=== PATIENT | female | born 1960 | race Two or more races ===

== ENCOUNTER 2018-11-25 15:27 | Inpatient (IN) | payer OTHER ==
[~2018-11-25] VITALS: Ht 149.9 cm; Wt 52.2 kg
[2018-11-25] MEDS ORDERED: Morphine Sulfate 2mg/ml Inj(IV/IM USE ONLY) IVP ONE (15:45)
--- NOTE | 2018-11-25 15:46 | Emergency Room Report ---
History of Present Illness General Chief Complaint: Abnormal Labs Source: Patient Present Illness HPI Patient presents being transferred out of hospice for blood transfusion. She has history of uterine cancer with ascites. She has been feeling weak and short of breath. There is also abdominal pain. Her doctor and family want to transfuse blood. Patient denies vomiting, hematemesis, coffee-ground emesis, melena, hematochezia , diarrhea or constipation. She also denies dysuria and hematuria. She does complain about abdominal pain as she is quite distended. She rates the pain 10/ 10 at this time constant pressure and aching. Patient complains about hoarseness. She denies any pain in her throat. She is not sure why she has hoarseness. Patient denies chest pain, cough. She does get easily out of breath with any exertion. Patient denies depression. Allergies: Coded Allergies: No Known Allergies (Unverified , 11/25/18) Patient History Past Medical History: see triage record Social History: Denies: smoking, alcohol use, drug use Social History Narrative Born in [facility] Reviewed Nursing Documentation: PMH: Agreed; PSxH: Agreed Nursing Documentation-PMH Past Medical History: No History, Except For Hx Cancer: Yes - stomach uterine Review of Systems All Other Systems: negative except mentioned in HPI Physical Exam Vital Signs Date Time Temp Pulse Resp B/P (MAP) Pulse Ox O2 Delivery O2 Flow Rate FiO2 11/25/18 15:37 97.9 88 18 90/55 (67) 92 Room Air Sp02 EP Interpretation: reviewed, normal General Appearance: GCS 15, thin, Chronically Ill Head: normocephalic Eyes: bilateral eye PERRL, bilateral eye conjunctivae pale ENT: dry mucus membranes Neck: supple, other - hoarse Respiratory: lungs clear, normal breath sounds Cardiovascular #1: regular rate, rhythm Cardiovascular #2: 2+ radial (R) Gastrointestinal: normal inspection, normal bowel sounds, no guarding, no rebound, distended, tenderness, mass - suprapubic and abdomen, other - fluid wave Genitourinary: no CVA tenderness Musculoskeletal: back normal, normal range of motion Neurologic: alert, oriented x3, DTRs symmetric, sensory intact, motor weakness - diffuse Psychiatric: mood/affect normal Skin: warm/dry, pallor Medical Decision Making Diagnostic Impression: Primary Impression: Profound anemia Qualified Codes: D64.89 - Other specified anemias Additional Impressions: Uterine cancer Qualified Codes: C55 - Malignant neoplasm of uterus, part unspecified Ascites Qualified Codes: R18.0 - Malignant ascites Abdominal pain Qualified Codes: R10.84 - Generalized abdominal pain ER Course Presents with alleged severe anemia and abdominal pain with history of uterine cancer. Differential includes profound anemia, spontaneous bacterial peritonitis, urinary tract infection, ascites, pancreatitis amongst others. The patient appears dehydrated at this time will receive IV hydration, analgesia. Blood will be sent for type and Rh. EKG no injury. CXR clear, ABD mass and possible ascites. H/H critically low. Blood ordered. C/O continued GERARD. Repeat analgesia. Receiving blood without reaction. Contacted Dr. Yin for admission Laboratory Tests Test 11/25/18 15:55 11/25/18 16:20 White Blood Count 6.0 K/UL (4.8-10.8) Red Blood Count 3.71 M/UL (4.20-5.40) L Hemoglobin 6.6 G/DL (12.0-16.0) *L Hematocrit 23.1 % (37.0-47.0) L Mean Corpuscular Volume 62 FL (80-99) L Mean Corpuscular Hemoglobin 17.9 PG (27.0-31.0) L Mean Corpuscular Hemoglobin Concent 28.8 G/DL (32.0-36.0) L Red Cell Distribution Width 15.9 % (11.6-14.8) H Platelet Count 451 K/UL (150-450) H Mean Platelet Volume 4.3 FL (6.5-10.1) L Neutrophils (%) (Auto) % (45.0-75.0) Lymphocytes (%) (Auto) % (20.0-45.0) Monocytes (%) (Auto) % (1.0-10.0) Eosinophils (%) (Auto) % (0.0-3.0) Basophils (%) (Auto) % (0.0-2.0) Neutrophils % (Manual) Pending Lymphocytes % (Manual) Pending Platelet Estimate Pending Platelet Morphology Pending Prothrombin Time 10.7 SEC (9.30-11.50) Prothrombin Time INR 1.0 (0.9-1.1) PTT 30 SEC (23-33) Sodium Level 141 MMOL/L (136-145) Potassium Level 3.9 MMOL/L (3.5-5.1) Chloride Level 104 MMOL/L (98-107) Carbon Dioxide Level 30 MMOL/L (21-32) Anion Gap 7 mmol/L (5-15) Blood Urea Nitrogen 17 mg/dL (7-18) Creatinine 0.8 MG/DL (0.55-1.30) Estimate Glomerular Filtration Rate > 60 mL/min (>60) Glucose Level 95 MG/DL (74-106) Lactic Acid Level Pending Calcium Level 8.7 MG/DL (8.5-10.1) Magnesium Level 2.6 MG/DL (1.8-2.4) H Total Bilirubin 0.2 MG/DL (0.2-1.0) Aspartate Amino Transferase (AST) 30 U/L (15-37) Alanine Aminotransferase (ALT) 12 U/L (12-78) Alkaline Phosphatase 105 U/L (46-116) Ammonia 26 umol/L (11-32) Troponin I 0.013 ng/mL (0.000-0.056) Total Protein 6.7 G/DL (6.4-8.2) Albumin 2.5 G/DL (3.4-5.0) L Globulin 4.2 g/dL Albumin/Globulin Ratio 0.6 (1.0-2.7) L Lipase 134 U/L (73-393) Urine Color Yellow Urine Appearance Slightly cloudy Urine pH 5 (4.5-8.0) Urine Specific [place] 1.015 (1.005-1.035) Urine Protein 2+ (NEGATIVE) H Urine Glucose (UA) Negative (NEGATIVE) Urine Ketones 1+ (NEGATIVE) H Urine Blood 4+ (NEGATIVE) H Urine Nitrite Negative (NEGATIVE) Urine Bilirubin 1+ (NEGATIVE) H Urine Ictotest Negative (NEGATIVE) Urine Urobilinogen 1 MG/DL (0.0-1.0) H Urine Leukocyte Esterase 1+ (NEGATIVE) H Urine RBC 5-10 /HPF (0 - 2) H Urine WBC 2-4 /HPF (0 - 2) Urine Squamous Epithelial Cells Many /LPF (NONE/OCC) H Urine Bacteria Few /HPF (NONE) Urine Mucus Many /LPF (NONE/OCC) H Urine Yeast Occasional /HPF (NONE) H EKG Diagnostic Results Rate: normal Rhythm: NSR ST Segments: no acute changes Rhythm Strip Diag. Results EP Interpretation: yes Rhythm: NSR, no PVC's, no ectopy Chest X-Ray Diagnostic Results Chest X-Ray Diagnostic Results : Chest X-Ray Ordered: Yes Indication: Other EP Interpretation: Yes Interpretation: no consolidation, no effusion, no pneumothorax Impression: No acute disease Electronically Signed by: Electronically signed by Waylon Chan MD Other X-Ray Diagnostic Results Other X-Ray Diagnostic Results : X-Ray ordered: Abdomen # of Views/Limited Vs Complete: 1 View Indication: Other EP Interpretation: Yes Interpretation: nonspecific bowel gas, no sbo, other - Mass and ascites Impression: Other Electronically Signed by: Electronically signed by Waylon Chan MD Last Vital Signs Date Time Temp Pulse Resp B/P (MAP) Pulse Ox O2 Delivery O2 Flow Rate FiO2 11/25/18 20:00 Room Air 11/25/18 18:24 97.7 83 16 85/56 (66) 98 Status: improved Disposition: PLACE IN OBSERVATION Condition: Serious Waylon Chan MD Nov 25, 2018 15:46
[2018-11-25] MEDS ORDERED: DULCOLAX10 MG RC (15:49)
[2018-11-25] MEDS ORDERED: MORPHINE S10 MG/5 ML ORAL (15:49)
[2018-11-25] MEDS ORDERED: LEVSIN0.125 MG ORAL (15:49)
[2018-11-25] MEDS ORDERED: SENNA-S TABLET1 EACH PO (15:49)
[2018-11-25] MEDS ORDERED: ACETAMINOPHEN325 M1 ORAL (15:49)
[2018-11-25] MEDS ORDERED: ZOFRAN4 M3 ORAL (15:49)
[2018-11-25] MEDS ORDERED: NORCO 5-325 TA1 EACH ORAL ×2 (15:49→19:59)
[2018-11-25 16:01] VITALS: BP 88/57
[2018-11-25 16:09] LABS: HEMATOCRIT 23.1 % (37.0-47.0); MEAN CORPUSCULAR VOLUME 62 FL (80-99); PLATELET COUNT 451 K/UL (150-450); RED BLOOD COUNT 3.71 M/UL (4.20-5.40); RED CELL DISTRIBUTION WIDTH 15.9 % (11.6-14.8)
[2018-11-25 16:11] LABS: HEMOGLOBIN 6.6 G/DL (12.0-16.0)
[2018-11-25 16:22] LABS: AMMONIA 26 umol/L (11-32)
[2018-11-25 16:24] LABS: ANION GAP 7 mmol/L (5-15); BLOOD UREA NITROGEN 17 mg/dL (7-18); CALCIUM 8.7 MG/DL (8.5-10.1); CARBON DIOXIDE 30 MMOL/L (21-32); CHLORIDE 104 MMOL/L (98-107); CREATININE 0.8 MG/DL (0.55-1.30); POTASSIUM 3.9 MMOL/L (3.5-5.1); SODIUM 141 MMOL/L (136-145)
[2018-11-25 16:27] LABS: APPEARANCE,URINE SLIGHTLY CLOUDY; BILIRUBIN, URINE 1+ (NEGATIVE); COLOR,URINE YELLOW; GLUCOSE, URINE (UA) NEGATIVE (NEGATIVE); KETONES,URINE 1+ (NEGATIVE); LEUKOCYTE ESTERASE ,URINE 1+ (NEGATIVE); NITRITE,URINE NEGATIVE (NEGATIVE); PH,URINE 5 (4.5-8.0); PROTEIN,URINE 2+ (NEGATIVE); UROBILINOGEN,URINE 1 MG/DL (0.0-1.0)
[2018-11-25 16:38] LABS: ALANINE AMINOTRANSFERASE 12 U/L (12-78); ALBUMIN 2.5 G/DL (3.4-5.0); ALBUMIN/GLOBULIN RATIO 0.6 (1.0-2.7); ALKALINE PHOSPHATASE 105 U/L (46-116); ASPARTATE AMINO TRANSFERASE 30 U/L (15-37); BILIRUBIN,TOTAL 0.2 MG/DL (0.2-1.0)
[2018-11-25 17:30] VITALS: BP 85/57
[2018-11-25] MEDS ORDERED: Morphine Sulfate 4mg/ml Inj (IV USE ONLY) IVP ONE (17:30)
[2018-11-25 17:45] VITALS: BP 83/50
[2018-11-25 18:24] VITALS: BP 85/56
[2018-11-25] MEDS ORDERED: ACETAMINOPHEN120 MG RECTAL (19:59)
[2018-11-25] MEDS ORDERED: GUAIFENESI100 MG/5 M ORAL (19:59)
[2018-11-25] MEDS ORDERED: guaiFENesin 100mg/5ml Liq ud ORAL PRN (21:30)
[2018-11-25] MEDS ORDERED: Morphine Sulfate 10mg/5ml Oral Soln ud ORAL PRN (21:30)
[2018-11-25] MEDS ORDERED: Hyoscyamine 0.125mg tab ORAL PRN (21:30)
[2018-11-25 21:45] VITALS: BP 86/53
[2018-11-25] MEDS ORDERED: TYLENOL650 MG RC (21:53)
[2018-11-25] MEDS ORDERED: Acetaminophen 650 MG SUPP RECTAL PRN (22:00)
[2018-11-25] MEDS: HYDROcodone/Acetamin 5/325 tab ORAL SCH (23:45)
[2018-11-26] VITALS: BP 83/49
--- NOTE | 2018-11-26 03:15 | History and Physical Report ---
DATE OF ADMISSION: 11/25/2018 NOTE: POOR AUDIO HISTORY OF PRESENT ILLNESS: The patient was admitted for severe anemia. The patient was . The patient was comfort care otherwise most of the history per chart review. PAST MEDICAL HISTORY: Significant for constipation, uterine cancer, history of anemia, history of liver failure, ascites. PAST SURGICAL HISTORY: Unable to obtain. MEDICATIONS: Bisacodyl and Senokot. ALLERGIES: No known allergies. FAMILY HISTORY: Unable to obtain. REVIEW OF SYSTEMS: Unable to obtain. Poor historian. PHYSICAL EXAMINATION: VITAL SIGNS: Temperature 97.9, pulse is 82, blood pressure 95/67. HEENT: PERRLA. NECK: Supple. No lymphadenopathy. CHEST: Clear to auscultation. CARDIOVASCULAR: Regular rate and rhythm. ABDOMEN: Soft. EXTREMITIES: No edema. Reflexes equal on both sides. NEUROLOGIC: Does not follow neurological exam. oriented. LABORATORY DATA: WBC of 6.6, platelets 451. Sodium 141, potassium 3.9, BUN of 17, creatinine 0.8. Troponin 0.013. ASSESSMENT: 1. Severe anemia. 2. Comfort care. 3. Ascites. 4. Abdominal pain. I have consulted Dr. Arsen Contreras, , Dr. Busch for the above-mentioned diagnoses and treatment and also Dr. Busch has been consulted for elevated magnesium of 2.6. Christy Yin M.D. DR: Bob JOB#: [id number] CC:
[2018-11-26 04:00] VITALS: BP 85/45
[2018-11-26] MEDS: HYDROcodone/Acetamin 5/325 tab ORAL SCH ×3 (05:35→17:48)
[2018-11-26 07:15] LABS: HEMATOCRIT 21.9 % (37.0-47.0); MEAN CORPUSCULAR VOLUME 66 FL (80-99); PLATELET COUNT 398 K/UL (150-450); RED BLOOD COUNT 3.29 M/UL (4.20-5.40)
[2018-11-26 07:29] LABS: HEMOGLOBIN 6.5 G/DL (12.0-16.0)
[2018-11-26 07:38] LABS: ALANINE AMINOTRANSFERASE 9 U/L (12-78); ALBUMIN 2.1 G/DL (3.4-5.0); ALBUMIN/GLOBULIN RATIO 0.7 (1.0-2.7); ALKALINE PHOSPHATASE 89 U/L (46-116); ANION GAP 8 mmol/L (5-15); ASPARTATE AMINO TRANSFERASE 23 U/L (15-37); BILIRUBIN,TOTAL 0.4 MG/DL (0.2-1.0); BLOOD UREA NITROGEN 11 mg/dL (7-18); CALCIUM 7.6 MG/DL (8.5-10.1); CARBON DIOXIDE 25 MMOL/L (21-32); CHLORIDE 107 MMOL/L (98-107); CREATININE 0.6 MG/DL (0.55-1.30); POTASSIUM 4.3 MMOL/L (3.5-5.1); SODIUM 140 MMOL/L (136-145)
[2018-11-26 08:00] VITALS: BP 72/48
[2018-11-26] MEDS: Heparin 5000 units/ml inj SUBQ SCH ×2 (08:13→20:24)
--- NOTE | 2018-11-26 10:13 | GI Initial Consult Note ---
History of Present Illness General Date patient seen: Nov 26, 2018 Time patient seen: 10:08 Reason for Hospitalization: Abnormal Labs Referring physician: KEHINDE MCKENZIE Reason for Consultation: ANEMIA Present Illness HPI Patient presents being transferred out of hospice for blood transfusion. She has history of uterine cancer with ascites. She has been feeling weak and short of breath. There is also abdominal pain. Her doctor and family want to transfuse blood. Patient denies vomiting, hematemesis, coffee-ground emesis, melena, hematochezia , diarrhea or constipation. She also denies dysuria and hematuria. She does complain about abdominal pain as she is quite distended. She rates the pain 10/ 10 at this time constant pressure and aching. Patient complains about hoarseness. She denies any pain in her throat. She is not sure why she has hoarseness. Patient denies chest pain, cough. She does get easily out of breath with any exertion. Patient denies depression. GI consulted for abdominal pain and anemia. Patient seen, awake alert and oriented with no apparent distress with no active signs symptoms of nausea vomiting. The patient has a history of uterine cancer. Her abdomen is distended and firm and the patient does complain of abdominal pain 5 out of 10. The patient is DNR, initially on comfort care admitted for anemia with low hemoglobin levels. Her presenting hemoglobin is a 6.5 today. No noted leukocytosis or transaminitis. Unknown history of endoscopic colonoscopy. Home Meds Reported Medications Acetaminophen (Acetaminophen) 650 Mg Supp.rect, 650 MG RC Q6H for fever>100, SUPP 0 Refills 11/25/18 Hydrocodone Bit/Acetaminophen 5-325* (NORCO 5-325*) 1 Each Tablet, 1 TAB ORAL Q6H for chronic abdominal pain, #10 TAB 0 Refills 11/25/18 Guaifenesin* (GUAIFENESIN) 100 Mg/5 Ml Liquid, 10 ML ORAL Q8H PRN for For Cough , #120 ML 0 Refills 11/25/18 Ondansetron* (ZOFRAN*) 4 Mg Tablet, 4 MG ORAL Q6H PRN for Nausea & Vomiting, TAB 11/25/18 Sennosides/Docusate Sodium (SENNA-S TABLET) 1 Each Tablet, 1 EACH PO HS PRN for Constipation, TAB 11/25/18 Hydrocodone Bit/Acetaminophen 5-325* (NORCO 5-325*) 1 Each Tablet, 1 TAB ORAL Q4H PRN for moderate to severe breakthroug, #10 TAB 0 Refills 11/25/18 Morphine 10mg/5ml Oral Soln* (Morphine 10mg/5ml Oral Soln*) 10 Mg/5 Ml Solution , 5 MG ORAL Q4HR PRN for Severe Pain (Pain Scale 7-10), #10 ML 0 Refills 11/25/18 Hyoscyamine Sulfate (LEVSIN) 0.125 Mg Tablet, 0.125 MG ORAL Q4HR PRN for secretions, TAB 11/25/18 Bisacodyl (DULCOLAX) 10 Mg Supp.rect, 10 MG RC DAILY PRN for Constipation, SUPP 11/25/18 Acetaminophen* (ACETAMINOPHEN 325MG TABLET*) 325 Mg Tablet, 650 MG ORAL Q4H PRN for Mild Pain (Pain Scale 1-3), TAB 11/25/18 Discontinued Reported Medications Acetaminophen* (TYLENOL*) 120 Mg Supp.rect, 120 MG RECTAL Q6HR PRN for temp> 100.0F, SUPP 11/25/18 Med list reviewed/reconciled: Yes Allergies: Coded Allergies: No Known Allergies (Unverified , 11/25/18) Patient History History Provided By: Patient, Medical Record PMH Narrative Past Medical History: see triage record Social History: Denies: smoking, alcohol use, drug use Social History Narrative Born in [facility] Reviewed Nursing Documentation: PMH: Agreed; PSxH: Agreed Nursing Documentation-PMH Past Medical History: No History, Except For Hx Cancer: Yes - stomach uterine Social History: Denies: smoking, alcohol use, drug use, other Review of Systems All Other Systems: negative except mentioned in HPI Physical Exam Vital Signs Date Time Temp Pulse Resp B/P (MAP) Pulse Ox O2 Delivery O2 Flow Rate FiO2 11/25/18 15:37 97.9 88 18 90/55 (67) 92 Room Air Sp02 EP Interpretation: reviewed, normal Labs Laboratory Tests Test 11/25/18 15:55 11/25/18 16:20 11/25/18 17:02 11/26/18 06:23 White Blood Count 6.0 K/UL (4.8-10.8) 6.0 K/UL (4.8-10.8) Red Blood Count 3.71 M/UL (4.20-5.40) L 3.29 M/UL (4.20-5.40) L Hemoglobin 6.6 G/DL (12.0-16.0) *L 6.5 G/DL (12.0-16.0) *L Hematocrit 23.1 % (37.0-47.0) L 21.9 % (37.0-47.0) L Mean Corpuscular Volume 62 FL (80-99) L 66 FL (80-99) L Mean Corpuscular Hemoglobin 17.9 PG (27.0-31.0) L 19.7 PG (27.0-31.0) L Mean Corpuscular Hemoglobin Concent 28.8 G/DL (32.0-36.0) L 29.6 G/DL (32.0-36.0) L Red Cell Distribution Width 15.9 % (11.6-14.8) H 19.0 % (11.6-14.8) H Platelet Count 451 K/UL (150-450) H 398 K/UL (150-450) Mean Platelet Volume 4.3 FL (6.5-10.1) L 4.7 FL (6.5-10.1) L Neutrophils (%) (Auto) % (45.0-75.0) % (45.0-75.0) Lymphocytes (%) (Auto) % (20.0-45.0) % (20.0-45.0) Monocytes (%) (Auto) % (1.0-10.0) % (1.0-10.0) Eosinophils (%) (Auto) % (0.0-3.0) % (0.0-3.0) Basophils (%) (Auto) % (0.0-2.0) % (0.0-2.0) Differential Total Cells Counted 100 100 Neutrophils % (Manual) 72 % (45-75) 70 % (45-75) Lymphocytes % (Manual) 15 % (20-45) L 19 % (20-45) L Monocytes % (Manual) 8 % (1-10) 7 % (1-10) Eosinophils % (Manual) 4 % (0-3) H 3 % (0-3) Basophils % (Manual) 1 % (0-2) 1 % (0-2) Band Neutrophils 0 % (0-8) 0 % (0-8) Nucleated Red Blood Cells 2 /100 WBC Platelet Estimate Adequate Adequate Platelet Morphology Normal Normal Polychromasia 1+ Hypochromasia 3+ 4+ Poikilocytosis 1+ Anisocytosis 1+ 2+ Microcytosis 2+ 3+ Prothrombin Time 10.7 SEC (9.30-11.50) Prothromb Time International Ratio 1.0 (0.9-1.1) Activated Partial Thromboplast Time 30 SEC (23-33) Sodium Level 141 MMOL/L (136-145) 140 MMOL/L (136-145) Potassium Level 3.9 MMOL/L (3.5-5.1) 4.3 MMOL/L (3.5-5.1) Chloride Level 104 MMOL/L (98-107) 107 MMOL/L (98-107) Carbon Dioxide Level 30 MMOL/L (21-32) 25 MMOL/L (21-32) Anion Gap 7 mmol/L (5-15) 8 mmol/L (5-15) Blood Urea Nitrogen 17 mg/dL (7-18) 11 mg/dL (7-18) Creatinine 0.8 MG/DL (0.55-1.30) 0.6 MG/DL (0.55-1.30) Estimat Glomerular Filtration Rate > 60 mL/min (>60) > 60 mL/min (>60) Glucose Level 95 MG/DL (74-106) 73 MG/DL (74-106) L Calcium Level 8.7 MG/DL (8.5-10.1) 7.6 MG/DL (8.5-10.1) L Magnesium Level 2.6 MG/DL (1.8-2.4) H Total Bilirubin 0.2 MG/DL (0.2-1.0) 0.4 MG/DL (0.2-1.0) Aspartate Amino Transf (AST/SGOT) 30 U/L (15-37) 23 U/L (15-37) Alanine Aminotransferase (ALT/SGPT) 12 U/L (12-78) 9 U/L (12-78) L Alkaline Phosphatase 105 U/L (46-116) 89 U/L (46-116) Ammonia 26 umol/L (11-32) Troponin I 0.013 ng/mL (0.000-0.056) 0.019 ng/mL (0.000-0.056) Total Protein 6.7 G/DL (6.4-8.2) 5.0 G/DL (6.4-8.2) L Albumin 2.5 G/DL (3.4-5.0) L 2.1 G/DL (3.4-5.0) L Globulin 4.2 g/dL 2.9 g/dL Albumin/Globulin Ratio 0.6 (1.0-2.7) L 0.7 (1.0-2.7) L Lipase 134 U/L (73-393) Urine Color Yellow Urine Appearance Slightly cloudy Urine pH 5 (4.5-8.0) Urine Specific [place] 1.015 (1.005-1.035) Urine Protein 2+ (NEGATIVE) H Urine Glucose (UA) Negative (NEGATIVE) Urine Ketones 1+ (NEGATIVE) H Urine Blood 4+ (NEGATIVE) H Urine Nitrite Negative (NEGATIVE) Urine Bilirubin 1+ (NEGATIVE) H Urine Ictotest Negative (NEGATIVE) Urine Urobilinogen 1 MG/DL (0.0-1.0) H Urine Leukocyte Esterase 1+ (NEGATIVE) H Urine RBC 5-10 /HPF (0 - 2) H Urine WBC 2-4 /HPF (0 - 2) Urine Squamous Epithelial Cells Many /LPF (NONE/OCC) H Urine Bacteria Few /HPF (NONE) Urine Mucus Many /LPF (NONE/OCC) H Urine Yeast Occasional /HPF (NONE) H Lactic Acid Level 1.00 mmol/L (0.4-2.0) General Appearance: well appearing, no apparent distress, alert, thin Head: normocephalic EENT: PERRL/EOMI, normal ENT inspection Neck: supple Respiratory: normal breath sounds, no respiratory distress Cardiovascular: normal rate Gastrointestinal: normal inspection, non tender, soft, normal bowel sounds, non -distended, other - See HPI Rectal: deferred Genitourinary: no CVA tenderness Musculoskeletal: normal inspection, back normal Neurologic: normal inspection, alert, oriented x3, responsive Psychiatric: normal inspection, judgement/insight normal, memory normal Skin: normal inspection, normal color, no rash, warm/dry, palpation normal, well hydrated Lymphatic: normal inspection, no adenopathy Current Medications Current Medications Medications (Trade) Dose Ordered Sig/Mary Route PRN Reason Start Time Stop Time Status Last Admin Dose Admin Acetaminophen (Tylenol) 325 mg Q6H PRN ORAL Mild Pain/Temp > 100.5 11/26/18 07:00 12/26/18 06:59 11/26/18 07:07 Acetaminophen (Tylenol) 650 mg Q6H PRN RECTAL Prn Headache/Temp > 100 F 11/25/18 22:00 12/25/18 21:59 Acetaminophen/ Hydrocodone Bitart ([place] 5/325) 1 tab Q4H PRN ORAL See dose instructions 11/25/18 21:30 12/02/18 21:29 Acetaminophen/ Hydrocodone Bitart ([place] 5/325) 1 tab Q6HR ORAL 11/26/18 00:00 12/03/18 00:00 Bisacodyl (Dulcolax) 10 mg DAILYPRN PRN RECTAL Constipation 11/25/18 21:30 12/25/18 21:29 Guaifenesin (Robitussin) 200 mg Q8H PRN ORAL For Cough 11/25/18 21:30 12/25/18 21:29 Heparin Sodium (Porcine) (Heparin 5000 units/ml) 5,000 units EVERY 12 HOURS SUBQ 11/26/18 09:00 12/26/18 08:59 Hyoscyamine Sulfate (Levsin) 0.125 mg Q4H PRN ORAL secretions 11/25/18 21:30 12/25/18 21:29 Morphine Sulfate (Morphine 10mg/ 5ml Oral Soln) 5 mg Q4H PRN ORAL Severe Pain (Pain Scale 7-10) 11/25/18 21:30 12/02/18 21:29 Ondansetron HCl (Zofran) 4 mg Q6H PRN ORAL Nausea & Vomiting 11/25/18 21:30 12/25/18 21:29 Sodium Chloride 1,000 ml @ 100 mls/hr Q10H IV 11/25/18 21:30 11/26/18 17:29 11/26/18 08:53 GI: Plan Problems: (1) Ascites (2) Uterine cancer (3) Profound anemia (4) Hypotension (5) Abdominal pain Plan No plans for GI procedures at this time, supportive care Obtain a abdominal ultrasound, will consider paracentesis if mild to large amounts of ascites Okay to advance diet after imaging study PRN transfusions per hematology Bowel regimen PPI pain management Zofran as needed, Reglan for persistent vomiting IV p.o. hydration plus electrolyte correction Follow labs Discussed with Dr. Ha. Thank you for this patient referral, we will follow. The patient was seen and examined at bedside and all new and available data was reviewed in the patients chart. I agree with the above findings, impression and plan. (Patient seen earlier today. Signature stamp does not reflect patient encounter time.). - MD Elizabeth Madrigal AnhJaninaSj ERNESTO Nov 26, 2018 10:13
[2018-11-26 12:00] VITALS: BP 78/51
--- NOTE | 2018-11-26 13:10 | Consultation ---
Consult Note Consult Note I was asked to consult on patient Pt DNR and was on Hospice prior to admission ER: Patient presents being transferred out of hospice for blood transfusion. She has history of uterine cancer with ascites. She has been feeling weak and short of breath. There is also abdominal pain. Her doctor and family want to transfuse blood. Patient denies vomiting, hematemesis, coffee-ground emesis, melena, hematochezia , diarrhea or constipation. She also denies dysuria and hematuria. She does complain about abdominal pain as she is quite distended. She rates the pain 10/ 10 at this time constant pressure and aching. Patient complains about hoarseness. She denies any pain in her throat. She is not sure why she has hoarseness. Patient denies chest pain, cough. She does get easily out of breath with any exertion. Patient denies depression. No Known Allergies (Unverified , 11/25/18) Hx Cancer: Yes - stomach uterine data reviewed discussed with engine pilot/Plan Profound Anemia Uterine cancer on hospice prior to admit Ascites Abdominal pain ? UTI No kidney issues yet- Midodrine for low bp transfusion per patient care associate overall poor prognosis Thien Busch MD Nov 26, 2018 13:10
--- NOTE | 2018-11-26 14:22 | Diagnostic Imaging Report ---
Indication: Abdominal pain Technique: One view of the chest Comparison: none Findings: There is some atelectasis at the left lung base. The heart is enlarged. There is tortuous. Upper mediastinum is unremarkable. Impression: Left basilar atelectasis. No acute process
--- NOTE | 2018-11-26 14:47 | Diagnostic Imaging Report ---
Indication: Abdominal pain Technique: Supine view of the abdomen Comparison: none Findings: There is dense opacification of the lower abdomen and upper pelvis, suggestive of a large mass. The bowel gas pattern is unremarkable. Impression: Suspect large pelvic and lower abdominal mass, as described. Correlate with clinical history. Review of chart indicates patient has history of uterine cancer.
[2018-11-26 16:00] VITALS: BP 84/52
--- NOTE | 2018-11-26 17:53 | Diagnostic Imaging Report ---
Indication: Abdominal distention Technique: Chen-scale and duplex images of the upper abdomen were obtained Comparison: Plain radiograph of the abdomen Findings: Gallbladder demonstrates sludge. No definite stones. No definite wall thickening or pericholecystic fluid Sonographic Jewell's sign is negative. Common bile duct measures 4 mm in diameter. No intrahepatic biliary ductal dilatation. Liver demonstrates normal echogenicity, no focal abnormality. There are demonstrates a cyst in the right lobe. Portal vein and hepatic veins are patent. Pancreas is unremarkable. Spleen is unremarkable. Left kidney measures 8.8 cm in length. Right kidney measures 11.2 cm length. Both kidneys demonstrate normal echogenicity. There is no hydronephrosis. Multiple cysts are seen in the right kidney . Non-aneurysmal abdominal aorta . There is a small amount of ascites. Large complex mass is demonstrated, measuring at least 22 cm long axis dimension. This occupies much of the abdomen. This demonstrates cystic and solid component Impression: Large abdominal and pelvic mass with cystic and solid components, corresponding to abnormality described on recent abdomen plain radiograph and likely related to known history of uterine cancer Gallbladder sludge. Negative for dilated ducts Incidental finding multiple right renal cysts Liver cyst incidentally noted Trace ascites
[2018-11-26] MEDS: Midodrine 10mg tab ORAL SCH (18:11)
--- NOTE | 2018-11-26 18:19 | Consultation ---
History of Present Illness General Date patient seen: Nov 26, 2018 Chief Complaint: Referring physician: Reason for Consultation: Present Illness Allergies: Coded Allergies: No Known Allergies (Unverified , 11/25/18) Medication History Scheduled Acetaminophen (Acetaminophen), 650 MG RC Q6H, (Reported) Hydrocodone Bit/Acetaminophen 5-325* (Eads 5-325*), 1 TAB ORAL Q6H, (Reported) Scheduled PRN Acetaminophen* (Acetaminophen 325MG Tablet*), 650 MG ORAL Q4H PRN for Mild Pain (Pain Scale 1-3), (Reported) Bisacodyl (Dulcolax), 10 MG RC DAILY PRN for Constipation, (Reported) Guaifenesin* (Guaifenesin), 10 ML ORAL Q8H PRN for For Cough, (Reported) Hydrocodone Bit/Acetaminophen 5-325* (Eads 5-325*), 1 TAB ORAL Q4H PRN for moderate to severe breakthroug, (Reported) Hyoscyamine Sulfate (Levsin), 0.125 MG ORAL Q4HR PRN for secretions, (Reported) Morphine 10mg/5ml Oral Soln* (Morphine 10mg/5ml Oral Soln*), 5 MG ORAL Q4HR PRN for Severe Pain (Pain Scale 7-10), (Reported) Ondansetron* (Zofran*), 4 MG ORAL Q6H PRN for Nausea & Vomiting, (Reported) Sennosides/Docusate Sodium (Senna-S Tablet), 1 EACH PO HS PRN for Constipation, (Reported) Discontinued Medications Acetaminophen* (Tylenol*), 120 MG RECTAL Q6HR PRN for temp>100.0F, (Reported) Discontinued Reason: Medication dose changed Patient History Healthcare decision maker Resuscitation status Full Code Advanced Directive on File Physical Exam Last 24 Hour Vital Signs Date Time Temp Pulse Resp B/P (MAP) Pulse Ox O2 Delivery O2 Flow Rate FiO2 11/26/18 16:00 98.0 75 20 84/52 (63) 100 11/26/18 12:00 98.2 77 20 78/51 (60) 94 11/26/18 09:00 Room Air 11/26/18 08:00 82 11/26/18 08:00 98.1 83 20 72/48 (56) 94 11/26/18 04:00 98.5 74 19 85/45 (58) 95 11/26/18 04:00 73 11/26/18 00:00 81 11/26/18 00:00 98.4 78 18 83/49 (60) 94 11/25/18 21:45 98.1 80 18 86/53 (64) 96 11/25/18 21:00 Room Air 11/25/18 20:00 Room Air 11/25/18 18:24 97.7 83 16 85/56 (66) 98 Intake and Output 11/25/18 11/26/18 19:00 07:00 Intake Total 300 ml 370 ml Balance 300 ml 370 ml Intake IV Total 300 ml Blood Product 370 ml # Voids 1 1 Laboratory Tests Test 11/26/18 06:23 White Blood Count 6.0 K/UL (4.8-10.8) Red Blood Count 3.29 M/UL (4.20-5.40) L Hemoglobin 6.5 G/DL (12.0-16.0) *L Hematocrit 21.9 % (37.0-47.0) L Mean Corpuscular Volume 66 FL (80-99) L Mean Corpuscular Hemoglobin 19.7 PG (27.0-31.0) L Mean Corpuscular Hemoglobin Concent 29.6 G/DL (32.0-36.0) L Red Cell Distribution Width 19.0 % (11.6-14.8) H Platelet Count 398 K/UL (150-450) Mean Platelet Volume 4.7 FL (6.5-10.1) L Neutrophils (%) (Auto) % (45.0-75.0) Lymphocytes (%) (Auto) % (20.0-45.0) Monocytes (%) (Auto) % (1.0-10.0) Eosinophils (%) (Auto) % (0.0-3.0) Basophils (%) (Auto) % (0.0-2.0) Differential Total Cells Counted 100 Neutrophils % (Manual) 70 % (45-75) Lymphocytes % (Manual) 19 % (20-45) L Monocytes % (Manual) 7 % (1-10) Eosinophils % (Manual) 3 % (0-3) Basophils % (Manual) 1 % (0-2) Band Neutrophils 0 % (0-8) Platelet Estimate Adequate Platelet Morphology Normal Hypochromasia 4+ Anisocytosis 2+ Microcytosis 3+ Sodium Level 140 MMOL/L (136-145) Potassium Level 4.3 MMOL/L (3.5-5.1) Chloride Level 107 MMOL/L (98-107) Carbon Dioxide Level 25 MMOL/L (21-32) Anion Gap 8 mmol/L (5-15) Blood Urea Nitrogen 11 mg/dL (7-18) Creatinine 0.6 MG/DL (0.55-1.30) Estimat Glomerular Filtration Rate > 60 mL/min (>60) Glucose Level 73 MG/DL (74-106) L Calcium Level 7.6 MG/DL (8.5-10.1) L Total Bilirubin 0.4 MG/DL (0.2-1.0) Aspartate Amino Transf (AST/SGOT) 23 U/L (15-37) Alanine Aminotransferase (ALT/SGPT) 9 U/L (12-78) L Alkaline Phosphatase 89 U/L (46-116) Troponin I 0.019 ng/mL (0.000-0.056) Total Protein 5.0 G/DL (6.4-8.2) L Albumin 2.1 G/DL (3.4-5.0) L Globulin 2.9 g/dL Albumin/Globulin Ratio 0.7 (1.0-2.7) L Height (Feet): 4 Height (Inches): 11.00 Weight (Pounds): 115 Medications Current Medications Medications (Trade) Dose Ordered Sig/Mary Route PRN Reason Start Time Stop Time Status Last Admin Dose Admin Acetaminophen (Tylenol) 325 mg Q6H PRN ORAL Mild Pain/Temp > 100.5 11/26/18 07:00 12/26/18 06:59 11/26/18 07:07 Acetaminophen (Tylenol) 650 mg Q6H PRN RECTAL Prn Headache/Temp > 100 F 11/25/18 22:00 12/25/18 21:59 Acetaminophen/ Hydrocodone Bitart (Eads 5/325) 1 tab Q4H PRN ORAL See dose instructions 11/25/18 21:30 12/02/18 21:29 Acetaminophen/ Hydrocodone Bitart (Eads 5/325) 1 tab Q6HR ORAL 11/26/18 00:00 12/03/18 00:00 Bisacodyl (Dulcolax) 10 mg DAILYPRN PRN RECTAL Constipation 11/25/18 21:30 12/25/18 21:29 Guaifenesin (Robitussin) 200 mg Q8H PRN ORAL For Cough 11/25/18 21:30 12/25/18 21:29 Heparin Sodium (Porcine) (Heparin 5000 units/ml) 5,000 units EVERY 12 HOURS SUBQ 11/26/18 09:00 12/26/18 08:59 Hyoscyamine Sulfate (Levsin) 0.125 mg Q4H PRN ORAL secretions 11/25/18 21:30 12/25/18 21:29 Midodrine (Pro-Amatine) 10 mg THREE TIMES A DAY ORAL 11/26/18 18:00 12/26/18 17:59 11/26/18 18:11 Morphine Sulfate (Morphine 10mg/ 5ml Oral Soln) 5 mg Q4H PRN ORAL Severe Pain (Pain Scale 7-10) 11/25/18 21:30 12/02/18 21:29 Ondansetron HCl (Zofran) 4 mg Q6H PRN ORAL Nausea & Vomiting 11/25/18 21:30 12/25/18 21:29 Sodium Chloride 1,000 ml @ 60 mls/hr [id number] IV 11/26/18 21:30 11/28/18 06:49 Assessment/Plan Assessment/Plan: (1) Intractable abdominal pain (2) Metastatic Uterine cancer seen dictated. Jimy Ashraf Nov 26, 2018 18:19
[2018-11-26 20:00] VITALS: BP 92/56
--- NOTE | 2018-11-26 20:36 | General Progress Note ---
Assessment/Plan Problem List: (1) Ascites ICD Codes: R18.8 - Other ascites SNOMED: 445599635 Qualifiers: Qualified Codes: R18.0 - Malignant ascites (2) Uterine cancer ICD Codes: C55 - Malignant neoplasm of uterus, part unspecified SNOMED: 418164231 Qualifiers: Qualified Codes: C55 - Malignant neoplasm of uterus, part unspecified (3) Profound anemia ICD Codes: D64.9 - Anemia, unspecified SNOMED: 359219668 Qualifiers: Qualified Codes: D64.89 - Other specified anemias (4) Abdominal pain ICD Codes: R10.9 - Unspecified abdominal pain SNOMED: 13466301 Qualifiers: Qualified Codes: R10.84 - Generalized abdominal pain (5) Hypotension ICD Codes: I95.9 - Hypotension, unspecified SNOMED: 83547578 Status: progressing Assessment/Plan: severe anemia per snf staff dpoa reversed her hospice status and ok the transfer to hospital to get transfusion sw consult .told rn and sw to get dpoa consent for blood transfusion Subjective ROS Limited/Unobtainable: Yes Allergies: Coded Allergies: No Known Allergies (Unverified , 11/25/18) Objective Last 24 Hour Vital Signs Date Time Temp Pulse Resp B/P (MAP) Pulse Ox O2 Delivery O2 Flow Rate FiO2 11/26/18 16:00 98.0 75 20 84/52 (63) 100 11/26/18 12:00 98.2 77 20 78/51 (60) 94 11/26/18 09:00 Room Air 11/26/18 08:00 82 11/26/18 08:00 98.1 83 20 72/48 (56) 94 11/26/18 04:00 98.5 74 19 85/45 (58) 95 11/26/18 04:00 73 11/26/18 00:00 81 11/26/18 00:00 98.4 78 18 83/49 (60) 94 11/25/18 21:45 98.1 80 18 86/53 (64) 96 11/25/18 21:00 Room Air Intake and Output 11/25/18 11/26/18 19:00 07:00 Intake Total 300 ml 370 ml Balance 300 ml 370 ml Intake IV Total 300 ml Blood Product 370 ml # Voids 1 1 Laboratory Tests 11/26/18 06:23: White Blood Count 6.0, Red Blood Count 3.29L, Hemoglobin 6.5*L, Hematocrit 21.9L , Mean Corpuscular Volume 66L, Mean Corpuscular Hemoglobin 19.7L, Mean Corpuscular Hemoglobin Concent 29.6L, Red Cell Distribution Width 19.0H, Platelet Count 398, Mean Platelet Volume 4.7L, Neutrophils (%) (Auto) , Lymphocytes (%) (Auto) , Monocytes (%) (Auto) , Eosinophils (%) (Auto) , Basophils (%) (Auto) , Differential Total Cells Counted 100, Neutrophils % ( Manual) 70, Lymphocytes % (Manual) 19L, Monocytes % (Manual) 7, Eosinophils % ( Manual) 3, Basophils % (Manual) 1, Band Neutrophils 0, Platelet Estimate Adequate, Platelet Morphology Normal, Hypochromasia 4+, Anisocytosis 2+, Microcytosis 3+, Sodium Level 140, Potassium Level 4.3, Chloride Level 107, Carbon Dioxide Level 25, Anion Gap 8, Blood Urea Nitrogen 11, Creatinine 0.6, Estimat Glomerular Filtration Rate > 60, Glucose Level 73L, Calcium Level 7.6L, Total Bilirubin 0.4, Aspartate Amino Transf (AST/SGOT) 23, Alanine Aminotransferase (ALT/SGPT) 9L, Alkaline Phosphatase 89, Troponin I 0.019, Total Protein 5.0L, Albumin 2.1L, Globulin 2.9, Albumin/Globulin Ratio 0.7L Height (Feet): 4 Height (Inches): 11.00 Weight (Pounds): 115 Neck: supple Cardiovascular: normal rate Respiratory/Chest: lungs clear Christy Yin MD Nov 26, 2018 20:36
--- NOTE | 2018-11-26 20:45 | Consultation ---
DATE OF CONSULTATION: 11/26/2018 PAIN MANAGEMENT CONSULTATION CONSULTING PHYSICIAN: Iwona Cadet M.D. REFERRING PHYSICIAN: Christy Yin M.D. PHYSICIAN MARKETING AUTOMATION SPECIALIST: Regi Nelson CHIEF COMPLAINT: Abdominal pain. HISTORY OF PRESENT ILLNESS: This is a 58-year-old female, who is being seen on the telemetry floor of [facility] for initial pain management consultation. The patient was admitted under the care of Dr. Yin due to anemia, being seen by Dr. Contreras due to metastatic uterine cancer, has been on hospice, however declined hospice because of the anemia and came to the emergency room and admitted to the hospital. At this time, she is on Letts 5/325 one tablet every 6 hours scheduled and around the clock, hold for sedation, Letts 5/325 one tablet every 4 hours as needed for breakthrough pain and morphine 5 mg liquid every 4 hours as needed for severe pain. The patient is in bed, no signs of pain or distress, getting blood, complains of pain rating 5/10 at times. PAST MEDICAL HISTORY: Asthma, hypotension, anemia. PAST SURGICAL HISTORY: Denies. SOCIAL HISTORY: Denies smoking tobacco, drinking alcohol, or IV drug abuse. ALLERGIES: No known allergies. MEDICATIONS: Morphine, Letts, Tylenol, guaifenesin, morphine, Zofran, Senna. REVIEW OF SYSTEMS: Denies rash, fever, chills, sweating, dizziness, drowsiness, blurred vision, sore throat, or change in hearing or weight. No shortness of breath or chest pain. No nausea, vomiting, or blood in the stool or urine. No bowel or bladder incontinence. No dysuria. She is complaining of abdominal pain. PHYSICAL EXAMINATION: GENERAL: Alert, awake, and oriented. VITAL SIGNS: Blood pressure 84/52, heart rate 75, oxygen saturation 100%, respiratory rate 20, and temperature 98 degrees Fahrenheit. HEENT: PERRLA. NECK: Range of motion is full in all directions. No tenderness to paracervical muscles. No adenopathy. LUNGS: Decreased breath sounds bilaterally. HEART: Regular. ABDOMEN: Tenderness to palpation. EXTREMITIES: Upper and lower extremity range of motion is decreased due to the patient condition. No cyanosis. No clubbing. Sensory is reduced. Reflexes are not obtainable. No adenopathy. ASSESSMENT AND PLAN: This is a 58-year-old female with metastatic uterine cancer, intractable abdominal pain. The patient will be continued on morphine and Letts. Parameters will be set to hold opiates for oversedation or systolic blood pressure below 90 or diastolic blood pressure below 60, respiratory rate below 12, oxygen saturation below 92%. The patient was discussed with Dr. Cadet and Dr. Cadet concurred. We will follow the patient. Thank you very much for the courtesy of this consultation. Iwona Cadet M.D. BOO Nelson DR: Thang JOB#: [id number] CC: DEVORA
[2018-11-27] VITALS: BP 101/56
[2018-11-27] MEDS: HYDROcodone/Acetamin 5/325 tab ORAL PRN ×3 (00:34→18:51)
[2018-11-27 04:00] VITALS: BP 101/63
--- NOTE | 2018-11-27 04:17 | Consultation ---
Consult Note Consult Note Hematology/ Oncology Consultation History of Present Illness This is a 58 year old female patient presents being transferred out of hospice for blood transfusion. She has history of uterine vs gastric cancer with ascites. She has been feeling weak and short of breath. Her doctor and family want to transfuse blood. Patient denies vomiting, hematemesis, coffee-ground emesis, melena, hematochezia, diarrhea or constipation. She also denies dysuria and hematuria. We were consulted for malignancy and for severe Anemia evaluation. Patient History Past Medical History: Cancer Social History: Denies: smoking, alcohol use, drug use Social History Narrative Family History: Non contributory Allergies: Coded Allergies: No Known Allergies Review of Systems All Other Systems: negative except mentioned in HPI Physical Exam General Appearance: Chronically Ill appearing Head: normocephalic Eyes: bilateral eye PERRL, bilateral eye conjunctivae pale ENT: dry mucus membranes Neck: supple, other - hoarse Respiratory: lungs clear, normal breath sounds Cardiovascular: regular rate, rhythm Gastrointestinal: normal inspection, normal bowel sounds, no guarding, no rebound, distended, tenderness, mass - suprapubic and abdomen, other - fluid wave Genitourinary: no CVA tenderness Musculoskeletal: back normal, normal range of motion Neurologic: alert, oriented x3, DTRs symmetric, sensory intact, motor weakness - diffuse Psychiatric: mood/affect normal Skin: warm/dry, pallor Assessment/Plan ASSESSMENT AND REC'S #. Uterine Cancer vs Gastric Cancer -->Will need to review outside imaging and treatments patient has received -->outside labs and pathology to be reviewed -->defer to outpatient oncologist for further care, patient requires followup --> we do not have any records available at this time. --> patient was on Hospice care prior to admission # Failure to thrive (FTT) --> will also obtain q3d caloric counts # Anemia of chronic disease and due to malignancy --> Anemia workup has been ordered, rule out gi bleed --> No evidence of hemolysis is noted, peripheral smear has been reviewed. --> Hgb goal >7. Transfuse prn. HGB 6.6 blood transfusion has been ordered --> GI Following appreicate recs. --> Medications have been reviewed --> bone marrow biopsy is not indicated given the other more likely causes # Thrombocytosis - likely related to reactive process (and/or underlying infection) --> Continue to monitor for improvement --> Trend CBC as needed --> If continues to be elevated, consider to send for JUAN-2 --> Smear reviewed and no abnormalities noted. *Under manual differential #. Ascites --> Para as needed --> US abd has been ordered --> consider AFP level #.Abdominal Pain #. Hypotension The timing of this note does not necessarily reflect the time of the patient was seen. GREATLY APPRECIATE CONSULTATION. Arsen Contreras MD Nov 27, 2018 04:17
[2018-11-27 08:00] VITALS: BP 91/55
[2018-11-27 08:31] LABS: BASOPHILS % (AUTO) 1.2 % (0.0-2.0); EOSINOPHILS % (AUTO) 3.4 % (0.0-3.0); HEMATOCRIT 30.7 % (37.0-47.0); HEMOGLOBIN 9.5 G/DL (12.0-16.0); LYMPHOCYTES % (AUTO) 21.7 % (20.0-45.0); MEAN CORPUSCULAR VOLUME 70 FL (80-99); MONOCYTES % (AUTO) 6.7 % (1.0-10.0); NEUTROPHILS % (AUTO) 67.1 % (45.0-75.0); PLATELET COUNT 362 K/UL (150-450); RED BLOOD COUNT 4.41 M/UL (4.20-5.40); WHITE BLOOD COUNT 6.1 K/UL (4.8-10.8)
[2018-11-27] MEDS: Midodrine 10mg tab ORAL SCH ×3 (08:51→17:37)
[2018-11-27 08:56] LABS: ANION GAP 11 mmol/L (5-15); BLOOD UREA NITROGEN 12 mg/dL (7-18); CALCIUM 8.1 MG/DL (8.5-10.1); CARBON DIOXIDE 23 MMOL/L (21-32); CHLORIDE 106 MMOL/L (98-107); CREATININE 0.7 MG/DL (0.55-1.30); PHOSPHORUS 3.2 MG/DL (2.5-4.9); POTASSIUM 3.7 MMOL/L (3.5-5.1); SODIUM 140 MMOL/L (136-145)
[2018-11-27] MEDS: Heparin 5000 units/ml inj SUBQ SCH ×2 (08:57→20:39)
--- NOTE | 2018-11-27 10:11 | GI Progress Note ---
Assessment/Plan Problems: (1) Uterine cancer ICD Codes: C55 - Malignant neoplasm of uterus, part unspecified SNOMED: 065441722 Qualifiers: Qualified Codes: C55 - Malignant neoplasm of uterus, part unspecified (2) Abdominal pain ICD Codes: R10.9 - Unspecified abdominal pain SNOMED: 56392860 Qualifiers: Qualified Codes: R10.84 - Generalized abdominal pain (3) Profound anemia ICD Codes: D64.9 - Anemia, unspecified SNOMED: 837051601 Qualifiers: Qualified Codes: D64.89 - Other specified anemias Status: unchanged Status Narrative Discussed with Dr. Ha. Assessment/Plan Abdominal ultrasound reviewed noted with a large abdominal pelvic mass approximately 22 cm long. Trace ascites. No plans for GI procedures at this time, supportive care Advance diet PRN transfusions per hematology Bowel regimen PPI pain management Zofran as needed, Reglan for persistent vomiting IV p.o. hydration plus electrolyte correction Follow labs The patient was seen and examined at bedside and all new and available data was reviewed in the patients chart. I agree with the above findings, impression and plan. (Patient seen earlier today. Signature stamp does not reflect patient encounter time.). - Damon Ha MD Subjective Subjective Abdominal pain and discomfort Objective Last 24 Hour Vital Signs Date Time Temp Pulse Resp B/P (MAP) Pulse Ox O2 Delivery O2 Flow Rate FiO2 11/27/18 08:00 98.4 71 19 91/55 (67) 92 11/27/18 04:00 98.0 64 18 101/63 (76) 95 11/27/18 00:00 99.2 67 18 101/56 (71) 94 11/26/18 21:00 Room Air 11/26/18 20:00 99.2 67 18 92/56 (68) 95 11/26/18 16:00 98.0 75 20 84/52 (63) 100 11/26/18 12:00 98.2 77 20 78/51 (60) 94 Intake and Output 11/26/18 11/27/18 18:59 06:59 # Voids 2 4 Laboratory Tests Test 11/27/18 07:53 White Blood Count 6.1 K/UL (4.8-10.8) Red Blood Count 4.41 M/UL (4.20-5.40) Hemoglobin 9.5 G/DL (12.0-16.0) #L Hematocrit 30.7 % (37.0-47.0) #L Mean Corpuscular Volume 70 FL (80-99) L Mean Corpuscular Hemoglobin 21.6 PG (27.0-31.0) L Mean Corpuscular Hemoglobin Concent 31.0 G/DL (32.0-36.0) L Red Cell Distribution Width 20.0 % (11.6-14.8) H Platelet Count 362 K/UL (150-450) Mean Platelet Volume 5.0 FL (6.5-10.1) L Neutrophils (%) (Auto) 67.1 % (45.0-75.0) Lymphocytes (%) (Auto) 21.7 % (20.0-45.0) Monocytes (%) (Auto) 6.7 % (1.0-10.0) Eosinophils (%) (Auto) 3.4 % (0.0-3.0) H Basophils (%) (Auto) 1.2 % (0.0-2.0) Sodium Level 140 MMOL/L (136-145) Potassium Level 3.7 MMOL/L (3.5-5.1) Chloride Level 106 MMOL/L (98-107) Carbon Dioxide Level 23 MMOL/L (21-32) Anion Gap 11 mmol/L (5-15) Blood Urea Nitrogen 12 mg/dL (7-18) Creatinine 0.7 MG/DL (0.55-1.30) Estimat Glomerular Filtration Rate > 60 mL/min (>60) Glucose Level 105 MG/DL (74-106) Calcium Level 8.1 MG/DL (8.5-10.1) L Phosphorus Level 3.2 MG/DL (2.5-4.9) Magnesium Level 1.9 MG/DL (1.8-2.4) Height (Feet): 4 Height (Inches): 11.00 Weight (Pounds): 115 General Appearance: alert, thin Cardiovascular: normal rate Abdominal Exam: distended Shayy Johnson NP Nov 27, 2018 10:11
[2018-11-27 12:00] VITALS: BP 103/58
--- NOTE | 2018-11-27 15:37 | Hematology/Onc Progress Note ---
Assessment/Plan Assessment/Plan # Uterine Cancer with records that were reviewed from outpatient records, has had this diagnosis since at least 06/13/18, presented with n/v, abd pain, gastric outlet obstuction, massive pelvic tumors, --> outside labs and pathology to be reviewed --> defer to outpatient oncologist for further care, patient requires followup --> we do not have any records available at this time. --> patient was on Hospice care prior to admission # Failure to thrive (FTT) --> will also obtain q3d caloric counts --> as per nutrition recs as well # Anemia of chronic disease and due to malignancy --> Anemia workup has been ordered, rule out gi bleed --> No evidence of hemolysis is noted, peripheral smear has been reviewed. --> Hgb goal >7. Transfuse prn. HGB 6.6 blood transfusion has been ordered --> GI Following appreicate recs. --> Medications have been reviewed # Thrombocytosis - likely related to reactive process (and/or underlying infection) --> Continue to monitor for improvement --> Trend CBC as needed --> If continues to be elevated, consider to send for JUAN-2 --> Smear reviewed and no abnormalities noted. *Under manual differential # Ascites pelvic mass noted --> Para as needed --> tumor markers outpatient # Abdominal Pain # Hypotension The timing of this note does not necessarily reflect the time of the patient was seen. GREATLY APPRECIATE CONSULTATION. Subjective Cardiovascular: Denies: no symptoms, chest pain, edema, irregular heart rate, lightheadedness, palpitations, syncope, other Respiratory: Denies: no symptoms, cough, shortness of breath, SOB with excertion, SOB at rest, sputum, wheezing, other Gastrointestinal/Abdominal: Denies: no symptoms, abdomen distended, abdominal pain, black stools, tarry stools, blood in stool, constipated, diarrhea, difficulty swallowing, nausea, poor appetite, poor fluid intake, rectal bleeding , vomiting, other Genitourinary: Denies: no symptoms, burning, discharge, frequency, flank pain, hematuria, incontinence, pain, urgency, other Neurologic/Psychiatric: Denies: no symptoms, anxiety, depressed, emotional problems, headache, numbness, paresthesia, pre-existing deficit, seizure, tingling, tremors, weakness, other Endocrine: Denies: no symptoms, excessive sweating, flushing, intolerance to cold, intolerance to heat, increased hunger, increased thirst, increased urine, unexplained weight gain, unexplained weight loss, other Allergies: Coded Allergies: No Known Allergies (Unverified , 11/25/18) Subjective 11/27: she is denial about her cancer, has uterine ca and reviewed records from op oncologist Dr. Zacarias Objective Objective Current Medications Medications (Trade) Dose Ordered Sig/Mary Route PRN Reason Start Time Stop Time Status Last Admin Dose Admin Acetaminophen (Tylenol) 325 mg Q6H PRN ORAL Mild Pain/Temp > 100.5 11/26/18 07:00 12/26/18 06:59 11/26/18 07:07 Acetaminophen (Tylenol) 650 mg Q6H PRN RECTAL Prn Headache/Temp > 100 F 11/25/18 22:00 12/25/18 21:59 Acetaminophen/ Hydrocodone Bitart ([place] 5/325) 1 tab Q4H PRN ORAL See dose instructions 11/25/18 21:30 12/02/18 21:29 11/27/18 12:16 Bisacodyl (Dulcolax) 10 mg DAILYPRN PRN RECTAL Constipation 11/25/18 21:30 12/25/18 21:29 Guaifenesin (Robitussin) 200 mg Q8H PRN ORAL For Cough 11/25/18 21:30 12/25/18 21:29 Heparin Sodium (Porcine) (Heparin 5000 units/ml) 5,000 units EVERY 12 HOURS SUBQ 11/26/18 09:00 12/26/18 08:59 11/27/18 08:57 Hyoscyamine Sulfate (Levsin) 0.125 mg Q4H PRN ORAL secretions 11/25/18 21:30 12/25/18 21:29 Midodrine (Pro-Amatine) 10 mg THREE TIMES A DAY ORAL 11/26/18 18:00 12/26/18 17:59 11/27/18 12:17 Morphine Sulfate (Morphine 10mg/ 5ml Oral Soln) 5 mg Q4H PRN ORAL Severe Pain (Pain Scale 7-10) 11/25/18 21:30 12/02/18 21:29 Ondansetron HCl (Zofran) 4 mg Q6H PRN ORAL Nausea & Vomiting 11/25/18 21:30 12/25/18 21:29 Sodium Chloride 1,000 ml @ 60 mls/hr [id number] IV 11/26/18 21:30 11/28/18 06:49 11/26/18 21:30 Last 24 Hour Vital Signs Date Time Temp Pulse Resp B/P (MAP) Pulse Ox O2 Delivery O2 Flow Rate FiO2 11/27/18 12:00 97.9 66 18 103/58 (73) 96 11/27/18 09:00 Room Air 11/27/18 08:00 98.4 71 19 91/55 (67) 92 11/27/18 04:00 98.0 64 18 101/63 (76) 95 11/27/18 00:00 99.2 67 18 101/56 (71) 94 11/26/18 21:00 Room Air 11/26/18 20:00 99.2 67 18 92/56 (68) 95 11/26/18 16:00 98.0 75 20 84/52 (63) 100 11/26/18 12:00 98.2 77 20 78/51 (60) 94 11/26/18 09:00 Room Air 11/26/18 08:00 82 11/26/18 08:00 98.1 83 20 72/48 (56) 94 11/26/18 04:00 98.5 74 19 85/45 (58) 95 11/26/18 04:00 73 11/26/18 00:00 81 11/26/18 00:00 98.4 78 18 83/49 (60) 94 11/25/18 21:45 98.1 80 18 86/53 (64) 96 11/25/18 21:00 Room Air 11/25/18 20:00 Room Air 11/25/18 18:24 97.7 83 16 85/56 (66) 98 11/25/18 18:10 97.9 11/25/18 17:49 97.9 89 20 83/50 99 Room Air 11/25/18 17:45 97.9 89 20 83/50 99 Room Air 11/25/18 17:30 97.9 82 18 85/57 97 Room Air 11/25/18 16:22 97.9 11/25/18 16:01 97.9 82 18 88/57 95 Room Air 11/25/18 15:37 97.9 88 18 90/55 (67) 92 Room Air Intake and Output 11/26/18 11/27/18 19:00 07:00 Intake Total 120 ml Balance 120 ml Intake Oral 120 ml # Voids 2 4 Labs Test 11/25/18 15:55 11/25/18 16:20 11/25/18 17:02 11/26/18 06:23 White Blood Count 6.0 K/UL (4.8-10.8) 6.0 K/UL (4.8-10.8) Red Blood Count 3.71 M/UL (4.20-5.40) 3.29 M/UL (4.20-5.40) Hemoglobin 6.6 G/DL (12.0-16.0) 6.5 G/DL (12.0-16.0) Hematocrit 23.1 % (37.0-47.0) 21.9 % (37.0-47.0) Mean Corpuscular Volume 62 FL (80-99) 66 FL (80-99) Mean Corpuscular Hemoglobin 17.9 PG (27.0-31.0) 19.7 PG (27.0-31.0) Mean Corpuscular Hemoglobin Concent 28.8 G/DL (32.0-36.0) 29.6 G/DL (32.0-36.0) Red Cell Distribution Width 15.9 % (11.6-14.8) 19.0 % (11.6-14.8) Platelet Count 451 K/UL (150-450) 398 K/UL (150-450) Mean Platelet Volume 4.3 FL (6.5-10.1) 4.7 FL (6.5-10.1) Neutrophils (%) (Auto) % (45.0-75.0) % (45.0-75.0) Lymphocytes (%) (Auto) % (20.0-45.0) % (20.0-45.0) Monocytes (%) (Auto) % (1.0-10.0) % (1.0-10.0) Eosinophils (%) (Auto) % (0.0-3.0) % (0.0-3.0) Basophils (%) (Auto) % (0.0-2.0) % (0.0-2.0) Differential Total Cells Counted 100 100 Neutrophils % (Manual) 72 % (45-75) 70 % (45-75) Lymphocytes % (Manual) 15 % (20-45) 19 % (20-45) Monocytes % (Manual) 8 % (1-10) 7 % (1-10) Eosinophils % (Manual) 4 % (0-3) 3 % (0-3) Basophils % (Manual) 1 % (0-2) 1 % (0-2) Band Neutrophils 0 % (0-8) 0 % (0-8) Nucleated Red Blood Cells 2 /100 WBC Platelet Estimate Adequate Adequate Platelet Morphology Normal Normal Polychromasia 1+ Hypochromasia 3+ 4+ Poikilocytosis 1+ Anisocytosis 1+ 2+ Microcytosis 2+ 3+ Prothrombin Time 10.7 SEC (9.30-11.50) Prothromb Time International Ratio 1.0 (0.9-1.1) Activated Partial Thromboplast Time 30 SEC (23-33) Sodium Level 141 MMOL/L (136-145) 140 MMOL/L (136-145) Potassium Level 3.9 MMOL/L (3.5-5.1) 4.3 MMOL/L (3.5-5.1) Chloride Level 104 MMOL/L (98-107) 107 MMOL/L (98-107) Carbon Dioxide Level 30 MMOL/L (21-32) 25 MMOL/L (21-32) Anion Gap 7 mmol/L (5-15) 8 mmol/L (5-15) Blood Urea Nitrogen 17 mg/dL (7-18) 11 mg/dL (7-18) Creatinine 0.8 MG/DL (0.55-1.30) 0.6 MG/DL (0.55-1.30) Estimat Glomerular Filtration Rate > 60 mL/min (>60) > 60 mL/min (>60) Glucose Level 95 MG/DL (74-106) 73 MG/DL (74-106) Calcium Level 8.7 MG/DL (8.5-10.1) 7.6 MG/DL (8.5-10.1) Magnesium Level 2.6 MG/DL (1.8-2.4) Total Bilirubin 0.2 MG/DL (0.2-1.0) 0.4 MG/DL (0.2-1.0) Aspartate Amino Transf (AST/SGOT) 30 U/L (15-37) 23 U/L (15-37) Alanine Aminotransferase (ALT/SGPT) 12 U/L (12-78) 9 U/L (12-78) Alkaline Phosphatase 105 U/L (46-116) 89 U/L (46-116) Ammonia 26 umol/L (11-32) Troponin I 0.013 ng/mL (0.000-0.056) 0.019 ng/mL (0.000-0.056) Total Protein 6.7 G/DL (6.4-8.2) 5.0 G/DL (6.4-8.2) Albumin 2.5 G/DL (3.4-5.0) 2.1 G/DL (3.4-5.0) Globulin 4.2 g/dL 2.9 g/dL Albumin/Globulin Ratio 0.6 (1.0-2.7) 0.7 (1.0-2.7) Lipase 134 U/L (73-393) Urine Color Yellow Urine Appearance Slightly cloudy Urine pH 5 (4.5-8.0) Urine Specific [place] 1.015 (1.005-1.035) Urine Protein 2+ (NEGATIVE) Urine Glucose (UA) Negative (NEGATIVE) Urine Ketones 1+ (NEGATIVE) Urine Blood 4+ (NEGATIVE) Urine Nitrite Negative (NEGATIVE) Urine Bilirubin 1+ (NEGATIVE) Urine Ictotest Negative (NEGATIVE) Urine Urobilinogen 1 MG/DL (0.0-1.0) Urine Leukocyte Esterase 1+ (NEGATIVE) Urine RBC 5-10 /HPF (0 - 2) Urine WBC 2-4 /HPF (0 - 2) Urine Squamous Epithelial Cells Many /LPF (NONE/OCC) Urine Bacteria Few /HPF (NONE) Urine Mucus Many /LPF (NONE/OCC) Urine Yeast Occasional /HPF (NONE) Lactic Acid Level 1.00 mmol/L (0.4-2.0) Test 11/27/18 07:53 White Blood Count 6.1 K/UL (4.8-10.8) Red Blood Count 4.41 M/UL (4.20-5.40) Hemoglobin 9.5 G/DL (12.0-16.0) Hematocrit 30.7 % (37.0-47.0) Mean Corpuscular Volume 70 FL (80-99) Mean Corpuscular Hemoglobin 21.6 PG (27.0-31.0) Mean Corpuscular Hemoglobin Concent 31.0 G/DL (32.0-36.0) Red Cell Distribution Width 20.0 % (11.6-14.8) Platelet Count 362 K/UL (150-450) Mean Platelet Volume 5.0 FL (6.5-10.1) Neutrophils (%) (Auto) 67.1 % (45.0-75.0) Lymphocytes (%) (Auto) 21.7 % (20.0-45.0) Monocytes (%) (Auto) 6.7 % (1.0-10.0) Eosinophils (%) (Auto) 3.4 % (0.0-3.0) Basophils (%) (Auto) 1.2 % (0.0-2.0) Sodium Level 140 MMOL/L (136-145) Potassium Level 3.7 MMOL/L (3.5-5.1) Chloride Level 106 MMOL/L (98-107) Carbon Dioxide Level 23 MMOL/L (21-32) Anion Gap 11 mmol/L (5-15) Blood Urea Nitrogen 12 mg/dL (7-18) Creatinine 0.7 MG/DL (0.55-1.30) Estimat Glomerular Filtration Rate > 60 mL/min (>60) Glucose Level 105 MG/DL (74-106) Calcium Level 8.1 MG/DL (8.5-10.1) Phosphorus Level 3.2 MG/DL (2.5-4.9) Magnesium Level 1.9 MG/DL (1.8-2.4) Height (Feet): 4 Height (Inches): 11.00 Weight (Pounds): 115 Objective General Appearance: Chronically Ill appearing Head: normocephalic Eyes: bilateral eye PERRL, bilateral eye conjunctivae pale ENT: dry mucus membranes Neck: supple, other - hoarse Respiratory: lungs clear, normal breath sounds Cardiovascular: regular rate, rhythm Gastrointestinal: normal inspection, normal bowel sounds, no guarding, no rebound, distended, tenderness, mass - suprapubic and abdomen, other - fluid wave Genitourinary: no CVA tenderness Musculoskeletal: back normal, normal range of motion Neurologic: alert, oriented x3, DTRs symmetric, sensory intact, motor weakness - diffuse Psychiatric: mood/affect normal Skin: warm/dry, pallor Arsen Contreras MD Nov 27, 2018 15:37
[2018-11-27 16:00] VITALS: BP 112/54
--- NOTE | 2018-11-27 16:06 | Nephrology Progress Note ---
Assessment/Plan Problem List: (1) Profound anemia (2) Hypotension (3) Uterine cancer Assessment Profound Anemia- transfused Uterine cancer on hospice prior to admit Ascites Abdominal pain ? UTI Plan No kidney issues yet- Midodrine for low bp transfusion per surgical rn overall poor prognosis Subjective ROS Limited/Unobtainable: No Constitutional: Reports: malaise Objective Objective Last 24 Hour Vital Signs Date Time Temp Pulse Resp B/P (MAP) Pulse Ox O2 Delivery O2 Flow Rate FiO2 11/27/18 12:00 97.9 66 18 103/58 (73) 96 11/27/18 09:00 Room Air 11/27/18 08:00 98.4 71 19 91/55 (67) 92 11/27/18 04:00 98.0 64 18 101/63 (76) 95 11/27/18 00:00 99.2 67 18 101/56 (71) 94 11/26/18 21:00 Room Air 11/26/18 20:00 99.2 67 18 92/56 (68) 95 Intake and Output 11/26/18 11/27/18 19:00 07:00 Intake Total 120 ml Balance 120 ml Intake Oral 120 ml # Voids 2 4 Laboratory Tests 11/27/18 07:53: White Blood Count 6.1, Red Blood Count 4.41, Hemoglobin 9.5#L, Hematocrit 30.7#L , Mean Corpuscular Volume 70L, Mean Corpuscular Hemoglobin 21.6L, Mean Corpuscular Hemoglobin Concent 31.0L, Red Cell Distribution Width 20.0H, Platelet Count 362, Mean Platelet Volume 5.0L, Neutrophils (%) (Auto) 67.1, Lymphocytes (%) (Auto) 21.7, Monocytes (%) (Auto) 6.7, Eosinophils (%) (Auto) 3.4H, Basophils (%) (Auto) 1.2, Sodium Level 140, Potassium Level 3.7, Chloride Level 106, Carbon Dioxide Level 23, Anion Gap 11, Blood Urea Nitrogen 12, Creatinine 0.7, Estimat Glomerular Filtration Rate > 60, Glucose Level 105, Calcium Level 8.1L, Phosphorus Level 3.2, Magnesium Level 1.9 Height (Feet): 4 Height (Inches): 11.00 Weight (Pounds): 115 General Appearance: no apparent distress Cardiovascular: normal rate Respiratory/Chest: decreased breath sounds Abdomen: distended Thien Busch MD Nov 27, 2018 16:06
--- NOTE | 2018-11-27 17:32 | General Progress Note ---
Assessment/Plan Assessment/Plan: (1) Intractable abdominal pain (2) Metastatic Uterine cancer Patient to be continued on Morphine and [place]. D/w Dr. Cadet and he concurred. Subjective Date patient seen: Nov 27, 2018 Time patient seen: 05:30 - pm Allergies: Coded Allergies: No Known Allergies (Unverified , 11/25/18) Subjective REVIEW OF SYSTEMS: Denies rash, fever, chills, sweating, dizziness, drowsiness, blurred vision, sore throat, or change in hearing or weight. No shortness of breath or chest pain. No nausea, vomiting, or blood in the stool or urine. No bowel or bladder incontinence. No dysuria. She is complaining of abdominal pain. Subjective: In bed reports no pain at this time. Has no new complaints at this time Objective Last 24 Hour Vital Signs Date Time Temp Pulse Resp B/P (MAP) Pulse Ox O2 Delivery O2 Flow Rate FiO2 11/27/18 16:00 97.8 50 19 112/54 (73) 97 11/27/18 12:00 97.9 66 18 103/58 (73) 96 11/27/18 09:00 Room Air 11/27/18 08:00 98.4 71 19 91/55 (67) 92 11/27/18 04:00 98.0 64 18 101/63 (76) 95 11/27/18 00:00 99.2 67 18 101/56 (71) 94 11/26/18 21:00 Room Air 11/26/18 20:00 99.2 67 18 92/56 (68) 95 Intake and Output 11/26/18 11/27/18 19:00 07:00 Intake Total 120 ml Balance 120 ml Intake Oral 120 ml # Voids 2 4 Laboratory Tests 11/27/18 07:53: White Blood Count 6.1, Red Blood Count 4.41, Hemoglobin 9.5#L, Hematocrit 30.7#L , Mean Corpuscular Volume 70L, Mean Corpuscular Hemoglobin 21.6L, Mean Corpuscular Hemoglobin Concent 31.0L, Red Cell Distribution Width 20.0H, Platelet Count 362, Mean Platelet Volume 5.0L, Neutrophils (%) (Auto) 67.1, Lymphocytes (%) (Auto) 21.7, Monocytes (%) (Auto) 6.7, Eosinophils (%) (Auto) 3.4H, Basophils (%) (Auto) 1.2, Sodium Level 140, Potassium Level 3.7, Chloride Level 106, Carbon Dioxide Level 23, Anion Gap 11, Blood Urea Nitrogen 12, Creatinine 0.7, Estimat Glomerular Filtration Rate > 60, Glucose Level 105, Calcium Level 8.1L, Phosphorus Level 3.2, Magnesium Level 1.9 Height (Feet): 4 Height (Inches): 11.00 Weight (Pounds): 115 Objective GENERAL: Alert, awake, and oriented. LUNGS: Decreased breath sounds bilaterally. HEART: Regular. ABDOMEN: Tenderness to palpation. EXTREMITIES: No cyanosis. No clubbing. NEURO: No changes. Jimy Ashraf Nov 27, 2018 17:32
[2018-11-27 20:00] VITALS: BP 90/51
--- NOTE | 2018-11-27 21:23 | General Progress Note ---
Assessment/Plan Problem List: (1) Ascites ICD Codes: R18.8 - Other ascites SNOMED: 061364235 Qualifiers: Qualified Codes: R18.0 - Malignant ascites (2) Uterine cancer ICD Codes: C55 - Malignant neoplasm of uterus, part unspecified SNOMED: 155318593 Qualifiers: Qualified Codes: C55 - Malignant neoplasm of uterus, part unspecified (3) Profound anemia ICD Codes: D64.9 - Anemia, unspecified SNOMED: 854720248 Qualifiers: Qualified Codes: D64.89 - Other specified anemias (4) Abdominal pain ICD Codes: R10.9 - Unspecified abdominal pain SNOMED: 46428167 Qualifiers: Qualified Codes: R10.84 - Generalized abdominal pain (5) Hypotension ICD Codes: I95.9 - Hypotension, unspecified SNOMED: 44908122 Status: progressing, unchanged Assessment/Plan: severe anemia h/h improved dc in am Subjective ROS Limited/Unobtainable: Yes Allergies: Coded Allergies: No Known Allergies (Unverified , 11/25/18) Objective Last 24 Hour Vital Signs Date Time Temp Pulse Resp B/P (MAP) Pulse Ox O2 Delivery O2 Flow Rate FiO2 11/27/18 19:19 97.8 11/27/18 16:00 97.8 50 19 112/54 (73) 97 11/27/18 12:00 97.9 66 18 103/58 (73) 96 11/27/18 09:00 Room Air 11/27/18 08:00 98.4 71 19 91/55 (67) 92 11/27/18 04:00 98.0 64 18 101/63 (76) 95 11/27/18 00:00 99.2 67 18 101/56 (71) 94 Intake and Output 11/26/18 11/27/18 19:00 07:00 Intake Total 120 ml Balance 120 ml Intake Oral 120 ml # Voids 2 4 Laboratory Tests 11/27/18 07:53: White Blood Count 6.1, Red Blood Count 4.41, Hemoglobin 9.5#L, Hematocrit 30.7#L , Mean Corpuscular Volume 70L, Mean Corpuscular Hemoglobin 21.6L, Mean Corpuscular Hemoglobin Concent 31.0L, Red Cell Distribution Width 20.0H, Platelet Count 362, Mean Platelet Volume 5.0L, Neutrophils (%) (Auto) 67.1, Lymphocytes (%) (Auto) 21.7, Monocytes (%) (Auto) 6.7, Eosinophils (%) (Auto) 3.4H, Basophils (%) (Auto) 1.2, Sodium Level 140, Potassium Level 3.7, Chloride Level 106, Carbon Dioxide Level 23, Anion Gap 11, Blood Urea Nitrogen 12, Creatinine 0.7, Estimat Glomerular Filtration Rate > 60, Glucose Level 105, Calcium Level 8.1L, Phosphorus Level 3.2, Magnesium Level 1.9 Height (Feet): 4 Height (Inches): 11.00 Weight (Pounds): 115 Cardiovascular: normal rate Respiratory/Chest: lungs clear Abdomen: soft Christy Yin MD Nov 27, 2018 21:23
[2018-11-28] VITALS: BP 86/56
[2018-11-28] MEDS: HYDROcodone/Acetamin 5/325 tab ORAL PRN ×2 (02:31→06:39)
[2018-11-28 04:00] VITALS: BP 90/55
[2018-11-28 07:33] LABS: BASOPHILS % (AUTO) 1.3 % (0.0-2.0); EOSINOPHILS % (AUTO) 5.2 % (0.0-3.0); HEMATOCRIT 30.9 % (37.0-47.0); HEMOGLOBIN 9.5 G/DL (12.0-16.0); LYMPHOCYTES % (AUTO) 16.8 % (20.0-45.0); MEAN CORPUSCULAR VOLUME 70 FL (80-99); MONOCYTES % (AUTO) 7.8 % (1.0-10.0); PLATELET COUNT 364 K/UL (150-450); RED BLOOD COUNT 4.42 M/UL (4.20-5.40); RED CELL DISTRIBUTION WIDTH 20.8 % (11.6-14.8); WHITE BLOOD COUNT 6.3 K/UL (4.8-10.8)
[2018-11-28 07:45] LABS: ANION GAP 10 mmol/L (5-15); BLOOD UREA NITROGEN 10 mg/dL (7-18); CALCIUM 8.2 MG/DL (8.5-10.1); CARBON DIOXIDE 24 MMOL/L (21-32); CHLORIDE 108 MMOL/L (98-107); CREATININE 0.7 MG/DL (0.55-1.30); POTASSIUM 3.8 MMOL/L (3.5-5.1); SODIUM 142 MMOL/L (136-145)
[2018-11-28 08:00] VITALS: BP 86/55
--- NOTE | 2018-11-28 08:42 | General Progress Note ---
Assessment/Plan Assessment/Plan: (1) Intractable abdominal pain (2) Metastatic Uterine cancer Patient to be continued on Morphine and [place]. D/w Dr. Cadet and he concurred. Subjective Date patient seen: Nov 28, 2018 Time patient seen: 08:00 - am Allergies: Coded Allergies: No Known Allergies (Unverified , 11/25/18) Subjective REVIEW OF SYSTEMS: Denies rash, fever, chills, sweating, dizziness, drowsiness, blurred vision, sore throat, or change in hearing or weight. No shortness of breath or chest pain. No nausea, vomiting, or blood in the stool or urine. No bowel or bladder incontinence. No dysuria. She is complaining of abdominal pain. Subjective: Patient reports no delacruz at this time which has been tolerated on the [place]. She has no new complaints at this time as well. Objective Last 24 Hour Vital Signs Date Time Temp Pulse Resp B/P (MAP) Pulse Ox O2 Delivery O2 Flow Rate FiO2 11/28/18 04:00 97.5 64 18 90/55 (67) 96 11/28/18 00:00 97.7 57 19 86/56 (66) 96 11/27/18 21:00 Room Air 11/27/18 20:00 97.8 56 19 90/51 (64) 97 11/27/18 19:19 97.8 11/27/18 16:00 97.8 50 19 112/54 (73) 97 11/27/18 12:00 97.9 66 18 103/58 (73) 96 11/27/18 09:00 Room Air Intake and Output 11/27/18 11/28/18 19:00 07:00 Intake Total 240 ml Balance 240 ml Intake Oral 240 ml # Voids 4 2 Laboratory Tests 11/28/18 05:27: White Blood Count 6.3, Red Blood Count 4.42, Hemoglobin 9.5L, Hematocrit 30.9L, Mean Corpuscular Volume 70L, Mean Corpuscular Hemoglobin 21.6L, Mean Corpuscular Hemoglobin Concent 30.9L, Red Cell Distribution Width 20.8H, Platelet Count 364, Mean Platelet Volume 4.6L, Neutrophils (%) (Auto) 69.0, Lymphocytes (%) (Auto) 16.8L, Monocytes (%) (Auto) 7.8, Eosinophils (%) (Auto) 5.2H, Basophils (%) (Auto) 1.3, Sodium Level 142, Potassium Level 3.8, Chloride Level 108H, Carbon Dioxide Level 24, Anion Gap 10, Blood Urea Nitrogen 10, Creatinine 0.7, Estimat Glomerular Filtration Rate > 60, Glucose Level 62L, Calcium Level 8.2L Height (Feet): 4 Height (Inches): 11.00 Weight (Pounds): 115 Objective GENERAL: Alert, awake, and oriented. LUNGS: Decreased breath sounds bilaterally. HEART: Regular. ABDOMEN: Tenderness to palpation. EXTREMITIES: No cyanosis. No clubbing. NEURO: No changes. Jimy Ashraf Nov 28, 2018 08:42
[2018-11-28] MEDS: Heparin 5000 units/ml inj SUBQ SCH (09:00)
--- NOTE | 2018-11-28 09:31 | GI Progress Note ---
Assessment/Plan Problems: (1) Uterine cancer ICD Codes: C55 - Malignant neoplasm of uterus, part unspecified SNOMED: 954904454 Qualifiers: Qualified Codes: C55 - Malignant neoplasm of uterus, part unspecified (2) Abdominal pain ICD Codes: R10.9 - Unspecified abdominal pain SNOMED: 56031187 Qualifiers: Qualified Codes: R10.84 - Generalized abdominal pain (3) Profound anemia ICD Codes: D64.9 - Anemia, unspecified SNOMED: 381325886 Qualifiers: Qualified Codes: D64.89 - Other specified anemias Status: stable, unchanged Status Narrative Discussed with Dr. Ha Assessment/Plan Abdominal ultrasound reviewed noted with a large abdominal pelvic mass approximately 22 cm long. Trace ascites. No plans for GI procedures at this time, supportive care Advance diet PRN transfusions per hematology Bowel regimen PPI pain management Zofran as needed, Reglan for persistent vomiting IV p.o. hydration plus electrolyte correction Follow labs DC planning The patient was seen and examined at bedside and all new and available data was reviewed in the patients chart. I agree with the above findings, impression and plan. (Patient seen earlier today. Signature stamp does not reflect patient encounter time.). - Damon Ha MD Subjective Subjective Abdominal pain and discomfort Objective Last 24 Hour Vital Signs Date Time Temp Pulse Resp B/P (MAP) Pulse Ox O2 Delivery O2 Flow Rate FiO2 11/28/18 04:00 97.5 64 18 90/55 (67) 96 11/28/18 00:00 97.7 57 19 86/56 (66) 96 11/27/18 21:00 Room Air 11/27/18 20:00 97.8 56 19 90/51 (64) 97 11/27/18 19:19 97.8 11/27/18 16:00 97.8 50 19 112/54 (73) 97 11/27/18 12:00 97.9 66 18 103/58 (73) 96 Intake and Output 11/27/18 11/28/18 18:59 06:59 Intake Total 360 ml Balance 360 ml Intake Oral 360 ml # Voids 4 2 Laboratory Tests Test 11/28/18 05:27 White Blood Count 6.3 K/UL (4.8-10.8) Red Blood Count 4.42 M/UL (4.20-5.40) Hemoglobin 9.5 G/DL (12.0-16.0) L Hematocrit 30.9 % (37.0-47.0) L Mean Corpuscular Volume 70 FL (80-99) L Mean Corpuscular Hemoglobin 21.6 PG (27.0-31.0) L Mean Corpuscular Hemoglobin Concent 30.9 G/DL (32.0-36.0) L Red Cell Distribution Width 20.8 % (11.6-14.8) H Platelet Count 364 K/UL (150-450) Mean Platelet Volume 4.6 FL (6.5-10.1) L Neutrophils (%) (Auto) 69.0 % (45.0-75.0) Lymphocytes (%) (Auto) 16.8 % (20.0-45.0) L Monocytes (%) (Auto) 7.8 % (1.0-10.0) Eosinophils (%) (Auto) 5.2 % (0.0-3.0) H Basophils (%) (Auto) 1.3 % (0.0-2.0) Sodium Level 142 MMOL/L (136-145) Potassium Level 3.8 MMOL/L (3.5-5.1) Chloride Level 108 MMOL/L (98-107) H Carbon Dioxide Level 24 MMOL/L (21-32) Anion Gap 10 mmol/L (5-15) Blood Urea Nitrogen 10 mg/dL (7-18) Creatinine 0.7 MG/DL (0.55-1.30) Estimat Glomerular Filtration Rate > 60 mL/min (>60) Glucose Level 62 MG/DL (74-106) L Calcium Level 8.2 MG/DL (8.5-10.1) L Height (Feet): 4 Height (Inches): 11.00 Weight (Pounds): 115 General Appearance: WD/WN, no apparent distress, alert, thin Cardiovascular: normal rate Respiratory/Chest: normal breath sounds, no respiratory distress Abdominal Exam: normal bowel sounds, non tender, soft, distended - See abdominal ultrasound Extremities: non-tender Shayy Johnson NP Nov 28, 2018 09:31
[2018-11-28] MEDS: Midodrine 10mg tab ORAL SCH ×3 (09:38→17:39)
[2018-11-28 12:00] VITALS: BP 105/88
--- NOTE | 2018-11-28 13:26 | Nephrology Progress Note ---
Assessment/Plan Problem List: (1) Profound anemia (2) Hypotension (3) Uterine cancer Assessment Profound Anemia- transfused Uterine cancer on hospice prior to admit Ascites Abdominal pain ? UTI Plan No kidney issues yet- Midodrine for low bp transfusion per newspaper editor overall poor prognosis Subjective ROS Limited/Unobtainable: No Constitutional: Reports: malaise Objective Objective Last 24 Hour Vital Signs Date Time Temp Pulse Resp B/P (MAP) Pulse Ox O2 Delivery O2 Flow Rate FiO2 11/28/18 09:00 Room Air 11/28/18 08:00 97.3 68 18 86/55 (65) 93 11/28/18 04:00 97.5 64 18 90/55 (67) 96 11/28/18 00:00 97.7 57 19 86/56 (66) 96 11/27/18 21:00 Room Air 11/27/18 20:00 97.8 56 19 90/51 (64) 97 11/27/18 19:19 97.8 11/27/18 16:00 97.8 50 19 112/54 (73) 97 Intake and Output 11/27/18 11/28/18 18:59 06:59 Intake Total 360 ml Balance 360 ml Intake Oral 360 ml # Voids 4 2 Laboratory Tests 11/28/18 05:27: White Blood Count 6.3, Red Blood Count 4.42, Hemoglobin 9.5L, Hematocrit 30.9L, Mean Corpuscular Volume 70L, Mean Corpuscular Hemoglobin 21.6L, Mean Corpuscular Hemoglobin Concent 30.9L, Red Cell Distribution Width 20.8H, Platelet Count 364, Mean Platelet Volume 4.6L, Neutrophils (%) (Auto) 69.0, Lymphocytes (%) (Auto) 16.8L, Monocytes (%) (Auto) 7.8, Eosinophils (%) (Auto) 5.2H, Basophils (%) (Auto) 1.3, Sodium Level 142, Potassium Level 3.8, Chloride Level 108H, Carbon Dioxide Level 24, Anion Gap 10, Blood Urea Nitrogen 10, Creatinine 0.7, Estimat Glomerular Filtration Rate > 60, Glucose Level 62L, Calcium Level 8.2L Height (Feet): 4 Height (Inches): 11.00 Weight (Pounds): 115 General Appearance: no apparent distress Cardiovascular: bradycardia Respiratory/Chest: decreased breath sounds Abdomen: distended Fouladian,Thien MD Nov 28, 2018 13:26
[2018-11-28 16:00] VITALS: BP 103/86
[2018-11-28] MEDS ORDERED: PRO-AMATINE10 MG ORAL (16:18)
--- NOTE | 2018-11-28 17:08 | Hematology/Onc Progress Note ---
Assessment/Plan Assessment/Plan # Uterine Cancer with records that were reviewed from outpatient records, has had this diagnosis since at least 06/13/18, presented with n/v, abd pain, gastric outlet obstruction, massive pelvic tumors, --> outside labs and pathology to be reviewed --> defer to outpatient oncologist for further care, patient requires followup --> we do not have any records available at this time. --> patient was on Hospice care prior to admission --> US abd: Large abdominal and pelvic mass with cystic and solid components # Failure to thrive (FTT) --> will also obtain q3d caloric counts --> as per nutrition recs as well # Anemia of chronic disease and due to malignancy --> Anemia workup has been ordered, rule out gi bleed --> No evidence of hemolysis is noted, peripheral smear has been reviewed. --> Hgb goal >7. Transfuse prn. --> GI Following appreciate recs. --> Medications have been reviewed --> Hgb trend: 9.5--> --> Blood tx: 2 units on 11/26/2018 # Thrombocytosis - likely related to reactive process (and/or underlying infection) --> Currently resolved --> Trend CBC as needed --> If continues to be elevated, consider to send for JUAN-2 --> Smear reviewed and no abnormalities noted. *Under manual differential # Ascites pelvic mass noted --> Para as needed --> tumor markers outpatient # Abdominal Pain # Hypotension The timing of this note does not necessarily reflect the time of the patient was seen. GREATLY APPRECIATE CONSULTATION. Subjective Hematologic/Lymphatic: Reports: anemia Allergies: Coded Allergies: No Known Allergies (Unverified , 11/25/18) All Systems: reviewed and negative except above Subjective 11/27: she is denial about her cancer, has uterine ca and reviewed records from op oncologist Dr. Zacarias 11/28: Pt in bed reports no pain at this time. Has no new complaints. Hgb stable. Objective Objective Current Medications Medications (Trade) Dose Ordered Sig/Mary Route PRN Reason Start Time Stop Time Status Last Admin Dose Admin Acetaminophen (Tylenol) 325 mg Q6H PRN ORAL Mild Pain/Temp > 100.5 11/26/18 07:00 12/26/18 06:59 11/26/18 07:07 Acetaminophen (Tylenol) 650 mg Q6H PRN RECTAL Prn Headache/Temp > 100 F 11/25/18 22:00 12/25/18 21:59 Acetaminophen/ Hydrocodone Bitart ([place] 5/325) 1 tab Q4H PRN ORAL See dose instructions 11/25/18 21:30 12/02/18 21:29 11/28/18 06:39 Bisacodyl (Dulcolax) 10 mg DAILYPRN PRN RECTAL Constipation 11/25/18 21:30 12/25/18 21:29 Guaifenesin (Robitussin) 200 mg Q8H PRN ORAL For Cough 11/25/18 21:30 12/25/18 21:29 Heparin Sodium (Porcine) (Heparin 5000 units/ml) 5,000 units EVERY 12 HOURS SUBQ 11/26/18 09:00 12/26/18 08:59 11/27/18 20:39 Hyoscyamine Sulfate (Levsin) 0.125 mg Q4H PRN ORAL secretions 11/25/18 21:30 12/25/18 21:29 Midodrine (Pro-Amatine) 10 mg THREE TIMES A DAY ORAL 11/26/18 18:00 12/26/18 17:59 11/28/18 12:53 Morphine Sulfate (Morphine 10mg/ 5ml Oral Soln) 5 mg Q4H PRN ORAL Severe Pain (Pain Scale 7-10) 11/25/18 21:30 12/02/18 21:29 Ondansetron HCl (Zofran) 4 mg Q6H PRN ORAL Nausea & Vomiting 11/25/18 21:30 12/25/18 21:29 Last 24 Hour Vital Signs Date Time Temp Pulse Resp B/P (MAP) Pulse Ox O2 Delivery O2 Flow Rate FiO2 11/28/18 12:00 97.3 67 20 105/88 (94) 93 11/28/18 09:00 Room Air 11/28/18 08:00 97.3 68 18 86/55 (65) 93 11/28/18 04:00 97.5 64 18 90/55 (67) 96 11/28/18 00:00 97.7 57 19 86/56 (66) 96 11/27/18 21:00 Room Air 11/27/18 20:00 97.8 56 19 90/51 (64) 97 11/27/18 19:19 97.8 11/27/18 16:00 97.8 50 19 112/54 (73) 97 11/27/18 12:00 97.9 66 18 103/58 (73) 96 11/27/18 09:00 Room Air 11/27/18 08:00 98.4 71 19 91/55 (67) 92 11/27/18 04:00 98.0 64 18 101/63 (76) 95 11/27/18 00:00 99.2 67 18 101/56 (71) 94 11/26/18 21:00 Room Air 11/26/18 20:00 99.2 67 18 92/56 (68) 95 Intake and Output 11/27/18 11/28/18 19:00 07:00 Intake Total 240 ml Balance 240 ml Intake Oral 240 ml # Voids 4 2 Labs Test 11/25/18 17:02 11/26/18 06:23 11/27/18 07:53 11/28/18 05:27 Lactic Acid Level 1.00 mmol/L (0.4-2.0) White Blood Count 6.0 K/UL (4.8-10.8) 6.1 K/UL (4.8-10.8) 6.3 K/UL (4.8-10.8) Red Blood Count 3.29 M/UL (4.20-5.40) 4.41 M/UL (4.20-5.40) 4.42 M/UL (4.20-5.40) Hemoglobin 6.5 G/DL (12.0-16.0) 9.5 G/DL (12.0-16.0) 9.5 G/DL (12.0-16.0) Hematocrit 21.9 % (37.0-47.0) 30.7 % (37.0-47.0) 30.9 % (37.0-47.0) Mean Corpuscular Volume 66 FL (80-99) 70 FL (80-99) 70 FL (80-99) Mean Corpuscular Hemoglobin 19.7 PG (27.0-31.0) 21.6 PG (27.0-31.0) 21.6 PG (27.0-31.0) Mean Corpuscular Hemoglobin Concent 29.6 G/DL (32.0-36.0) 31.0 G/DL (32.0-36.0) 30.9 G/DL (32.0-36.0) Red Cell Distribution Width 19.0 % (11.6-14.8) 20.0 % (11.6-14.8) 20.8 % (11.6-14.8) Platelet Count 398 K/UL (150-450) 362 K/UL (150-450) 364 K/UL (150-450) Mean Platelet Volume 4.7 FL (6.5-10.1) 5.0 FL (6.5-10.1) 4.6 FL (6.5-10.1) Neutrophils (%) (Auto) % (45.0-75.0) 67.1 % (45.0-75.0) 69.0 % (45.0-75.0) Lymphocytes (%) (Auto) % (20.0-45.0) 21.7 % (20.0-45.0) 16.8 % (20.0-45.0) Monocytes (%) (Auto) % (1.0-10.0) 6.7 % (1.0-10.0) 7.8 % (1.0-10.0) Eosinophils (%) (Auto) % (0.0-3.0) 3.4 % (0.0-3.0) 5.2 % (0.0-3.0) Basophils (%) (Auto) % (0.0-2.0) 1.2 % (0.0-2.0) 1.3 % (0.0-2.0) Differential Total Cells Counted 100 Neutrophils % (Manual) 70 % (45-75) Lymphocytes % (Manual) 19 % (20-45) Monocytes % (Manual) 7 % (1-10) Eosinophils % (Manual) 3 % (0-3) Basophils % (Manual) 1 % (0-2) Band Neutrophils 0 % (0-8) Platelet Estimate Adequate Platelet Morphology Normal Hypochromasia 4+ Anisocytosis 2+ Microcytosis 3+ Sodium Level 140 MMOL/L (136-145) 140 MMOL/L (136-145) 142 MMOL/L (136-145) Potassium Level 4.3 MMOL/L (3.5-5.1) 3.7 MMOL/L (3.5-5.1) 3.8 MMOL/L (3.5-5.1) Chloride Level 107 MMOL/L (98-107) 106 MMOL/L (98-107) 108 MMOL/L (98-107) Carbon Dioxide Level 25 MMOL/L (21-32) 23 MMOL/L (21-32) 24 MMOL/L (21-32) Anion Gap 8 mmol/L (5-15) 11 mmol/L (5-15) 10 mmol/L (5-15) Blood Urea Nitrogen 11 mg/dL (7-18) 12 mg/dL (7-18) 10 mg/dL (7-18) Creatinine 0.6 MG/DL (0.55-1.30) 0.7 MG/DL (0.55-1.30) 0.7 MG/DL (0.55-1.30) Estimat Glomerular Filtration Rate > 60 mL/min (>60) > 60 mL/min (>60) > 60 mL/min (>60) Glucose Level 73 MG/DL (74-106) 105 MG/DL (74-106) 62 MG/DL (74-106) Calcium Level 7.6 MG/DL (8.5-10.1) 8.1 MG/DL (8.5-10.1) 8.2 MG/DL (8.5-10.1) Total Bilirubin 0.4 MG/DL (0.2-1.0) Aspartate Amino Transf (AST/SGOT) 23 U/L (15-37) Alanine Aminotransferase (ALT/SGPT) 9 U/L (12-78) Alkaline Phosphatase 89 U/L (46-116) Troponin I 0.019 ng/mL (0.000-0.056) Total Protein 5.0 G/DL (6.4-8.2) Albumin 2.1 G/DL (3.4-5.0) Globulin 2.9 g/dL Albumin/Globulin Ratio 0.7 (1.0-2.7) Phosphorus Level 3.2 MG/DL (2.5-4.9) Magnesium Level 1.9 MG/DL (1.8-2.4) Height (Feet): 4 Height (Inches): 11.00 Weight (Pounds): 115 Objective General Appearance: Chronically Ill appearing Head: normocephalic Eyes: bilateral eye PERRL, bilateral eye conjunctivae pale ENT: dry mucus membranes Neck: supple, other - hoarse Respiratory: lungs clear, normal breath sounds Cardiovascular: regular rate, rhythm Gastrointestinal: normal inspection, normal bowel sounds, no guarding, no rebound, distended, tenderness, mass - suprapubic and abdomen, other - fluid wave Genitourinary: no CVA tenderness Musculoskeletal: back normal, normal range of motion Neurologic: alert, oriented x3, DTRs symmetric, sensory intact, motor weakness - diffuse Psychiatric: mood/affect normal Skin: warm/dry, pallor Arsen Contreras MD Nov 28, 2018 17:08
[2018-11-28 20:00] VITALS: BP 108/66
--- NOTE | 2018-11-29 10:05 | Discharge Summary ---
Discharge Summary Discharge Summary _ DATE OF ADMISSION: 11/25/2018 DATE OF DISCHARGE: 11/28/2018 DISCHARGED BY: Dr. Christy Banuelos CONSULTANTS: Dr. Arsen Cadet BRIEF HOSPITAL COURSE: Patient is a 58-year-old female, who was admitted for severe anemia. Patient was transferred out of hospice and was sent to ED for evaluation of abnormal labs. She has a history of uterine cancer with ascites. Patient had been feeling weak and short of breath she denied any vomiting, hematemesis, coffee- ground emesis melena hematochezia, diarrhea or constipation. She denied dysuria or hematuria. She complained of abdominal pain. She complained of hoarseness. She denied any pain in her throat. On evaluation at ED, blood pressure was 90/55. Heart rate 88, RR 18, 92% saturation. She was afebrile. Blood work did not show any leukocytosis. Hemoglobin was 6.6, hematocrit 23. Indices were low. Electrolytes were normal. Troponin negative. Urinalysis showed +1 leukocyte esterase, 2-4 urine WBC, 5-10 urine RBC, negative nitrite 4+ blood, 1+ ketone, 2+ protein. EKG was in normal sinus rhythm with no acute changes. Chest x-ray did not show any acute disease. KUB showed a large pelvic and lower abdominal mass. She was then admitted for severe anemia. She was started on blood transfusion. The following day, she was still anemic. She received a total of 3 units packed RBC blood transfusion. GI was consulted. She was given bowel regimen. She was placed on PPI. She was given IV hydration. Abdominal ultrasound showed a large abdominal and pelvic mass. There was only trace ascites. No need for paracentesis. Parent Aide was consulted. She was started on midodrine for low BP. She was given pain management. She was placed on morphine and [place]. Urine culture showed growth of Group B strep with low colony count. Hemoglobin and blood pressure were stable. She was eventually discharged to a SNF. FINAL DIAGNOSES: Profound anemia requiring blood transfusion Uterine cancer on hospice prior to admission Failure to thrive Anemia of chronic disease and due to malignancy Thrombocytosis Ascites due to pelvic mass Possible UTI DISPOSITION: Patient was discharged to a SNF. DISCHARGE MEDICATIONS: Refer to Discharge Medication List. I have been assigned to complete a discharge summary on this account, I was not involved with the patient's management. Elaina Carbajal NP Nov 29, 2018 10:05
== END 2018-11-28 20:05 | DRG 530 ==
LOC: EDBD 15:27 → EMR 16:11 → OBSVTOIN 16:55 → 4E 16:55 → EDBEDREQ 17:03 → 2E 21:32
PROC: 30233N1 Transfusion of Nonautologous Red Blood Cells into Peripheral Vein, Percutaneous Approach (ICD-10-PCS; principal; 2018-11-25)
DX: C55 Malignant neoplasm of uterus, part unspecified (principal); R18.0 Malignant ascites; I95.9 Hypotension, unspecified; D47.3 Essential (hemorrhagic) thrombocythemia; D63.0 Anemia in neoplastic disease; Z51.5 Encounter for palliative care; Z66 Do not resuscitate; D63.8 Anemia in other chronic diseases classified elsewhere; N39.0 Urinary tract infection, site not specified; J45.909 Unspecified asthma, uncomplicated; R62.7 Adult failure to thrive; Z68.20 Body mass index [BMI] 20.0-20.9, adult
CPT/HCPCS: 36415; 71045; 74018; 76700; 80048; 80053; 81003; 82140; 83605; 83690; 83735; 84100; 84484; 85007; 85025; 85610; 85730; 86850; 86900; 86901; 86920; 87081; 87086; 93005; 96361; 96374; 96375; 96376; 99285; J2405